=== PATIENT | female | born 1970 | race Caucasian/White ===

== ENCOUNTER 2017-04-03 09:10 | Emergency (ER) | payer BC ==
[2017-04-03 10:03] VITALS: BP 127/87
--- NOTE | 2017-04-03 10:42 | UC ---
Throat Pain/Nasal Steve HPI - HPI Summary HPI Summary: ONE WEEK OF SORE THROAT, CONGESTION, PRODUCTIVE COUGH, FEVER. NO NAUSEA OR VOMITING NO DIARRHEA OR CONSTIPATION. - History of Current Complaint Chief Complaint: UCRespiratory Stated Complaint: SORE THROAT,COUGH Time Seen by Provider: 04/03/17 10:23 Hx Obtained From: Patient Hx Last Menstrual Period: 03/01/17 Onset/Duration: Gradual Onset, Lasting Weeks, Still Present Severity: Moderate Cough: Productive Associated Signs & Symptoms: Positive: Hoarseness, Sinus Discomfort, Fever - Epiglottits Risk Factors Epiglottis Risk Factors: Negative - Allergies/Home Medications Allergies/Adverse Reactions: Allergies Allergy/AdvReac Type Severity Reaction Status Date / Time No Known Allergies Allergy Verified 04/03/17 09:57 Home Medications: Home Medications Cough With Decongestant BID PRN 04/03/17 [History] PMH/Surg Hx/FS Hx/Imm Hx Previously Healthy: Yes - Surgical History Surgical History: None - Family History Known Family History: Negative: Respiratory Disease - Social History Occupation: Employed Full-time Alcohol Use: None Substance Use Type: None Smoking Status (MU): Never Smoked Tobacco Review of Systems Constitutional: Fever, Fatigue Skin: Negative Eyes: Negative ENT: Sore Throat, Sinus Congestion Respiratory: Cough Cardiovascular: Negative Gastrointestinal: Negative Genitourinary: Negative Motor: Negative Neurovascular: Negative Musculoskeletal: Negative Neurological: Negative Psychological: Negative All Other Systems Reviewed And Are Negative: Yes Physical Exam Triage Information Reviewed: Yes Appearance: No Pain Distress, Well-Nourished, Ill-Appearing Vital Signs: Initial Vital Signs Temp 99.9 F 04/03/17 09:59 Pulse 81 04/03/17 09:59 Resp 16 04/03/17 09:59 BP 127/87 04/03/17 09:59 Pulse Ox 97 04/03/17 09:59 Vital Signs Reviewed: Yes Eye Exam: Normal ENT: Positive: Hearing grossly normal, Pharyngeal erythema, TM bulging, TM dull Dental Exam: Normal Neck exam: Normal Neck: Positive: Supple, Nontender, No Lymphadenopathy Respiratory Exam: Other - COUGH Respiratory: Positive: Chest non-tender, Lungs clear, Normal breath sounds, No respiratory distress, No accessory muscle use Cardiovascular Exam: Normal Cardiovascular: Positive: RRR, No Murmur, Pulses Normal Abdominal Exam: Normal Musculoskeletal: Positive: Strength Intact, ROM Intact Neurological Exam: Normal Psychological Exam: Normal Skin Exam: Normal Throat Pain/Nasal Course/Dx - Differential Dx/Diagnosis Differential Diagnosis/HQI/PQRI: Pharyngitis, Sinusitis, URI Provider Diagnoses: SINUSITIS Discharge - Discharge Plan Condition: Stable Disposition: HOME Prescriptions: Amoxicillin/Clavulanate TAB* [Augmentin TAB 875*] 875 mg PO BID #20 tab Benzonatate CAP* [Tessalon 100 MG CAP*] 100 mg PO TID PRN #15 cap PRN Reason: Cough Patient Education Materials: Sinusitis (ED), Acute Bronchitis (ED) Forms: *Work Release Referrals: Mely Leos MD [Primary Care Provider] -
== END 2017-04-03 10:40 | disposition home or self-care (01) ==
LOC: UCCORT 09:10
DX: J32.9 Chronic sinusitis, unspecified (principal)
CPT/HCPCS: 99202; G0463

== ENCOUNTER 2019-01-16 11:08 | Emergency (ER) | payer BC ==
--- OUTSIDE RECORDS SUMMARY | 2019-01-16 11:26 | XMS REPORT | Continuity of Care Document ---
:1970 External Reference #:[id number] Author Name Linda Masterson Care Team Providers Name Role Phone Mely Leos MD Primary Care Physician Unavailable Payers Date Identification Numbers Payment Provider Subscriber Policy Number: [id number] BCBS Ppo Ksenia Moore PayID: [id number] [address] [address] [place] [address] Expires: 2018 Policy Number: [id number] Micaela Porras Oscar Group Number: [id number] [address] [address] PayID: [id number] JOCELYN Araujo [id number] Effective: 2005 Policy Number: [id number] Seanus Ksenia Porras Oscar Expires: 2018 Group Number: [id number] [address] [address] PayID: [id number] JOCELYN Araujo [id number] Problems Active Problems Provider Date Vitamin D deficiency Mely Leos MD Onset: 12/21/2010 Resolved Problems Hyperlipidemia Mely Leos MD Onset: 12/21/2010 Resolved: 03/28/2017 Gout Mely Leos MD Onset: 07/12/2012 Resolved: 03/28/2017 Family History Date Family Member(s) Observation Comments General HTN,CVA Father Heart Disease Father Diabetes Mellitus, II Social History Type Date Description Comments Sex Unknown Tobacco Use Start: Unknown Denies Smoking ETOH Use Denies alcohol use Recreational Drug Use Denies Drug Use Tobacco Use Start: Unknown Patient has never smoked Smoking Status Reviewed: 04/15/17 Patient has never smoked Seat Belt/Car Seat Always uses a seat belt Currently Active The patient is currently sexually active Allergies, Adverse Reactions, Alerts Description No Known Drug Allergies Medications Active Medications SIG Qnty Indications Ordering Provider Date Vitamin D3 daily otc 90caps Mely Leos MD 03/28/2017 2000Unit Capsules Meloxicam 1 by mouth Unknown 15mg Tablets every day History Medications Diflucan 1 by mouth every 3tsienna Leos MD 04/11/2018 - 150mg Tablets day 12/20/2018 Zithromax 2 by mouth day 1, 6taJasen Boyd 08/10/2017 - 250mg Tablets 1 by mouth every 04/11/2018 day x days 2-5 Diflucan 1 by mouth every 3tabs Mely Leos MD 04/15/2017 - 150mg Tablets day 08/10/2017 Zithromax 1 by mouth every 5tabs Mely Leos MD 04/15/2017 - 500mg Tablets day for five days 08/10/2017 Flagyl 1 by mouth three 30tabs Mely Leos MD 10/27/2016 - 500mg Tablets times a day 03/28/2017 Diflucan 1 by mouth every 3tabs Mely Leos MD 03/31/2016 - 150mg Tablets day 04/03/2016 No Active Medications Unknown 03/18/2016 - 03/31/2016 Amoxicillin tab 1 by mouth 20taindia Leos MD 10/27/2015 - 875mg Tablets twice a day 03/18/2016 No Active Medications Unknown 10/01/2015 - 10/27/2015 Meloxicam take with food 30taindia Leos MD 11/13/2014 - 7.5mg Tablets every day 03/03/2015 Clarithromycin ER tab 1 po bid 20taindia Leos MD 08/22/2012 - 500mg 09/14/2012 Tablets ER 24HR Amoxicillin 1 po tid 30taindia Leos MD 04/18/2012 - 500mg Tablets 07/12/2012 Blood Builder Produced by Jovany Leos MD 06/23/2011 - foods. 04/18/2012 Flax Seed Oil qday Mely Leos MD 11/18/2009 - 1000mg 08/20/2014 Capsules Vitamin C qd Mely Leos MD 07/14/2009 - 500mg Tablets 05/12/2010 Amoxicillin 1 po tid 30taindia Leos MD 07/14/2009 - 500mg Tablets 11/18/2009 Vitamin D-3 Super daily otc Mely Leos MD 05/20/2009 - Strength 10/01/2015 2000Unit Tablets Zithromax 2 po day 1, 1 po 6tabs Mely Leos MD 10/01/2008 - 250mg Tablets qd x days 2-5 05/20/2009 Work Note patient prasanth Mely Leos MD 10/01/2008 - return to work 07/14/2009 on 10/07/08 Levaquin 1 po qd for ten 7tabs Mely Leos MD 10/30/2007 - 500mg Tablets day's 04/30/2008 Amoxicillin 1 PO tid X 10 30caps Mely Leos MD 05/30/2007 - 500mg Capsules Days 04/30/2008 No Meds Mely Leos MD 04/18/2006 - 07/14/2009 Acidophilus 2 by mouth two 30caps J20.9 Jasen Armenta - High-Potency times a day 04/11/2018 Capsules Robitussin Coughgels Unknown - 15mg 04/11/2018 Capsules Zyrtec Allergy 1 by mouth every Unknown - 10mg day as needed 04/11/2018 Capsules Immunizations CPT Code Status Date Vaccine Lot # [id number] Given 03/28/2017 Tetanus,Diphtheria,Adut/Adol Pertussis [id number] Given 05/26/2010 Influenza Vaccine [id number] Given 12/06/2002 DT Immunization DIP/Tet (History Only) Vital Signs Date Vital Result Comment 12/20/2018 2:42pm BP Systolic 136 mmHg BP Diastolic 84 mmHg Heart Rate 97 /min Height 65.50 inches 5'5.50" Weight 210.00 lb BMI (Body Mass Index) 34.4 kg/m2 O2 % BldC Oximetry 98 % 04/11/2018 4:17pm BP Systolic 118 mmHg BP Diastolic 70 mmHg Respiratory Rate 16 /min Height 65.50 inches 5'5.50" Weight 207.00 lb BMI (Body Mass Index) 33.9 kg/m2 08/10/2017 10:17am BP Systolic 134 mmHg BP Diastolic 70 mmHg Heart Rate 83 /min Body Temperature 98.4 F Respiratory Rate 18 /min 04/15/2017 9:27am BP Systolic 128 mmHg BP Diastolic 70 mmHg Body Temperature 97.6 F Respiratory Rate 18 /min 03/28/2017 10:55am BP Systolic 110 mmHg BP Diastolic 60 mmHg Respiratory Rate 18 /min Height 65.5 inches 5'5.50" Weight 205.00 lb BMI (Body Mass Index) 33.6 kg/m2 11/09/2016 3:04pm BP Systolic 122 mmHg BP Diastolic 70 mmHg 10/27/2016 4:05pm BP Systolic 132 mmHg BP Diastolic 70 mmHg 03/18/2016 3:43pm BP Systolic 132 mmHg BP Diastolic 78 mmHg 10/27/2015 12:40pm BP Systolic 120 mmHg BP Diastolic 62 mmHg Body Temperature 98.8 F 10/01/2015 2:49pm BP Systolic 122 mmHg BP Diastolic 64 mmHg Height 67 inches 5'7" Weight 198.00 lb BMI (Body Mass Index) 31.0 kg/m2 03/03/2015 3:28pm BP Systolic 120 mmHg BP Diastolic 72 mmHg Height 67 inches 5'7" Weight 203.00 lb BMI (Body Mass Index) 31.8 kg/m2 11/13/2014 9:12am BP Systolic 110 mmHg BP Diastolic 70 mmHg 08/20/2014 3:54pm BP Systolic 118 mmHg BP Diastolic 66 mmHg Height 68 inches 5'8" Weight 196.00 lb BMI (Body Mass Index) 29.8 kg/m2 01/23/2014 2:38pm BP Systolic 120 mmHg BP Diastolic 80 mmHg Height 68 inches 5'8" Weight 202.00 lb BMI (Body Mass Index) 30.7 kg/m2 08/20/2013 3:02pm BP Systolic 142 mmHg BP Diastolic 90 mmHg BP Systolic Recheck 120 mmHg BP Diastolic Recheck 70 mmHg Height 68 inches 5'8" Weight 202.00 lb BMI (Body Mass Index) 30.7 kg/m2 03/30/2013 9:53am BP Systolic 104 mmHg BP Diastolic 66 mmHg Height 68 inches 5'8" Weight 200.00 lb BMI (Body Mass Index) 30.4 kg/m2 09/14/2012 10:29am BP Systolic 130 mmHg BP Diastolic 80 mmHg Height 68 inches 5'8" Weight 191.00 lb BMI (Body Mass Index) 29.0 kg/m2 08/22/2012 11:52am BP Systolic 110 mmHg BP Diastolic 80 mmHg Body Temperature 98.2 F Height 68 inches 5'8" 07/12/2012 2:56pm BP Systolic 120 mmHg BP Diastolic 80 mmHg Height 68 inches 5'8" Weight 194.00 lb BMI (Body Mass Index) 29.5 kg/m2 04/18/2012 12:07pm BP Systolic 116 mmHg BP Diastolic 80 mmHg Body Temperature 99.6 F 12/22/2011 1:53pm BP Systolic 122 mmHg BP Diastolic 80 mmHg Height 67 inches 5'7" Weight 208.00 lb BMI (Body Mass Index) 32.6 kg/m2 06/23/2011 3:16pm BP Systolic 124 mmHg BP Diastolic 72 mmHg Height 67 inches 5'7" Weight 198.00 lb BMI (Body Mass Index) 31.0 kg/m2 12/21/2010 2:06pm BP Systolic 112 mmHg BP Diastolic 60 mmHg Height 67 inches 5'7" Weight 200.00 lb BMI (Body Mass Index) 31.3 kg/m2 05/12/2010 3:29pm BP Systolic 130 mmHg BP Diastolic 72 mmHg Weight 198.00 lb 11/18/2009 3:19pm BP Systolic 122 mmHg BP Diastolic 80 mmHg Weight 191.00 lb 07/14/2009 2:49pm Body Temperature 98.8 F 05/20/2009 2:31pm BP Systolic 128 mmHg BP Diastolic 86 mmHg Height 67 inches 5'7" Weight 181.00 lb BMI (Body Mass Index) 28.3 kg/m2 10/01/2008 3:13pm BP Systolic 110 mmHg BP Diastolic 62 mmHg Body Temperature 98.8 F Height 67 inches 5'7" Weight 182.00 lb BMI (Body Mass Index) 28.5 kg/m2 04/30/2008 2:33pm BP Systolic 118 mmHg BP Diastolic 76 mmHg Height 67 inches 5'7" Weight 172.00 lb BMI (Body Mass Index) 26.9 kg/m2 11/01/2007 11:18am BP Systolic 114 mmHg BP Diastolic 78 mmHg Body Temperature 100.1 F Height 67 inches 5'7" 05/30/2007 1:43pm BP Systolic 106 mmHg BP Diastolic 70 mmHg Body Temperature 100.2 F Height 67 inches 5'7" 04/25/2007 3:05pm BP Systolic 110 mmHg BP Diastolic 64 mmHg Height 67 inches 5'7" Weight 176.00 lb BMI (Body Mass Index) 27.6 kg/m2 12/13/2006 1:17pm BP Systolic 118 mmHg BP Diastolic 68 mmHg Height 67 inches 5'7" Weight 170.00 lb BMI (Body Mass Index) 26.6 kg/m2 04/21/2006 3:24pm BP Systolic 110 mmHg BP Diastolic 70 mmHg Height 67 inches 5'7" Weight 173.00 lb BMI (Body Mass Index) 27.1 kg/m2 Results Test Date Facility Test Result H/L Range Note Basic Metabolic Panel 12/16/2018 [facility] Glucose 89 mg/dL N 74-[address] [place], [place] [id number] [phone] BUN 12 mg/dL N 7-18 Creatinine 0.8 mg/dL N 0.6-1.3 Glom Filtration Rate, Estimate >60 mL/min >60 If >60 mL/min >60 2 BUN/Creat 15.0 ratio Sodium 137 mmol/L N 136-145 Potassium 4.7 mmol/L N 3.5-5.1 Chloride 105 mmol/L N 98-107 Carbon Dioxide 28 mmol/L N 21-32 Anion Gap 4 mEq/L Low 8-16 Calcium 9.0 mg/dL N 8.5-10.1 CBS W/Automated 12/16/2018 [facility] White Blood 6.2 K/uL N 3.1-10.[address] Count [place], [place] [id number] [phone] Red Blood Count 4.80 M/uL N 3.90-5.40 Hemoglobin 13.0 gm/dL N 11.6-15.8 Hematocrit 40.8 % N 36.0-46.1 Mean Cell Volume 85.0 fl N 80.9-99.0 Mean Corpuscular HGB 27.1 pg N 25.9-32.7 Mean Corpuscular HGB Conc 31.9 g/dL N 30.8-34.3 Platelet Count 418 K/uL High 155-360 Red Cell Distri Width SD 44.2 fl N 36-47 Red Cell Distri Width %CV 14.3 % N 11.7-14.4 Mean Platelet Volume 9.5 fl N 8.9-12.4 Neut% 48.2 % N 40.4-72.8 Lymph % 38.6 % N 20.0-42.0 Bethel % 7.4 % N 4.3-13.2 Eo% 4.2 % N 0.0-6.6 Bas% 1.3 % High 0.0-1.1 Immature Grans 0.3 % N 0.0-5.0 NRBC % 0.0 /100WBC < 10/ 100 WBC Neut# 3.00 K/uL N 1.8-7.0 Lymph # 2.40 K/uL N 1.0-4.0 Bethel # 0.46 K/uL N 0.3-0.9 Eos # 0.26 K/uL N 0.0-0.5 Baso # 0.08 K/uL N 0.0-0.1 Immature Grans Absolute 0.02 K/uL NRBC # 0.00 K/uL TSH+Free T4 12/16/2018 [facility] Thyroid Stim < pending> ([place] [facility]) [address] [place] [address] [phone] Free T4 <pending> Laboratory test 12/16/2018 [facility] Vitamin < pending> finding [address] D,25-Hydroxy [place], [place] [id number] [phone] Xray 04/17/2018 [facility] Mamogram Bilateral < pending> [place] [id number] Screening [phone] CBS W/Automated 04/08/2018 [facility] White Blood Count 8.5 K/uL N 3.1-1 [address] 0[address]7 [place], [place] [address] [phone] Red Blood Count 4.74 M/uL N 3.90-5.40 Hemoglobin 13.8 gm/dL N 11.6-15.8 Hematocrit 40.4 % N 36.0-46.1 Mean Cell Volume 85.2 fl N 80.9-99.0 Mean Corpuscular HGB 29.1 pg N 25.9-32.7 Mean Corpuscular HGB Conc 34.2 g/dL N 30.8-34.3 Platelet Count 353 K/uL N 155-360 Red Cell Distri Width SD 44.1 fl N 3-47 Red Cell Distri Width %CV 14.5 % High 11.7-14.4 Mean Platelet Volume 9.9 fL N 8.9-12.4 Neut% 61.6 % N 40.4-72.8 Lymph % 27.7 % N 20.0-42.0 Bethel % 7.3 % N 4.3-13.2 Eo% 2.8 % N 0.0-6.6 Bas% 0.6 % N 0.0-1.1 Neut# 5.23 K/uL N 1.8-7.0 Lymph # 2.35 K/uL N 1.0-4.0 Bethel # 0.62 K/uL N 0.3-0.9 Eos # 0.24 K/uL N 0.0-0.5 Baso # 0.05 K/uL N 0.0-0.1 Comprehensive 04/08/2018 [facility] Glucose 102 mg/ dL N 74-106 Metabolic Panel [address] [place] [address] [phone] BUN 14 mg/dL N 7-18 Creatinine 0.9 mg/dL N 0.6-1.3 Glom Filtration Rate, Estimate >60 mL/min >60 If >60 mL/min >60 4 BUN/Creat 15.5 ratio Sodium 138 mmol/L N 136-145 Potassium 4.9 mmol/L N 3.5-5.1 Chloride 104 mmol/L N 98-107 Carbon Dioxide 28 mmol/L N 21-32 Anion Gap 6 mEq/L Low 8-16 Calcium 9.0 mg/dL N 8.5-10.1 Total Protein 7.7 g/dL N 6.4-8.2 Albumin 3.6 g/dL N 3.4-5.0 Globulin 4.1 g/dL N 1.9-4.3 Alb/Glob 0.9 ratio Bilirubin,Total 0.3 mg/dL N 0.2-1.0 Sgot/Ast 12 U/L Low 15-37 5 SGPT/Alt 23 U/L N 12-78 Alkaline Phosphatase 71 U/L N 45-117 TSH+Free T4 04/08/2018 [facility] Thyroid Stim 1.97 uIU/mL N 0.30-4.20 ([place] & [address] Hormone [facility] [place] [address] [phone] Free T4 0.81 ng/dL N 0.76-1.46 LDL Cholesterol 04/08/2018 [facility] Cholesterol 158 mg/dL <200 [address] [place] [address] [phone] Triglycerides 84 mg/dL <150 7 HDL Cholesterol 48 mg/dL >40 8 LDL-Cholesterol 93 mg/dL < 100 9 Laboratory test 04/08/2018 [facility] Vitamin 31.0 30.0-100.0 [address] D,25-Hydroxy ng/[place] [address] [phone] General Health 03/19/2017 [facility] Thyroid Stim 1.34 N 0.30-4.20 [address] Hormone uIU/[place] [address] [phone] Free T4 0.94 ng/dL N 0.76-1.46 Comprehensive Metabolic 03/19/2017 [facility] Glucose 97 mg/dL N 74-[address] [place] [address] [phone] BUN 16 mg/dL N 7-18 Creatinine 0.7 mg/dL N 0.6-1.3 Glom Filtration Rate, Estimate >60 mL/min >60 If >60 mL/min >60 12 BUN/Creat 22.8 ratio Sodium 137 mmol/L N 136-145 Potassium 3.9 mmol/L N 3.5-5.1 Chloride 105 mmol/L N 98-107 Carbon Dioxide 26 mmol/L N 21-32 Anion Gap 6 mEq/L Low 8-16 Calcium 8.2 mg/dL Low 8.5-10.1 Laboratory 03/19/2017 [facility] Vitamin 24.6 Low 30.0-100.0 13 test finding [address] D,25-Hydroxy ng/[place] [address] [phone] Liver Function 03/19/2017 [facility] Total Protein 7.3 g/dL N 6.4-8.[address] [place] [address] [phone] Albumin 3.3 g/dL Low 3.4-5.0 Globulin 4.0 g/dL N 1.9-4.3 Alb/Glob 0.8 ratio Bilirubin,Total 0.2 mg/dL N 0.2-1.0 Bilirubin,Direct < 0.1 mg/dL N 0.0-0.2 Bilirubin,Indirect 0.1 mg/dL N 0.0-0.9 Sgot/Ast 18 U/L N 15-37 SGPT/Alt 24 U/L N 12-78 Alkaline Phosphatase 70 U/L N 45-117 LDL Cholesterol 03/19/2017 [facility] Cholesterol 162 mg/dL <200 [address] [place], [place] [id number] [phone] Triglycerides 99 mg/dL <150 15 HDL Cholesterol 41 mg/dL >40 16 LDL-Cholesterol 101 mg/dL < 100 17 CBC W/Automated 03/19/2017 [facility] White Blood 6.1 K/uL N 3.1-10.[address] [place] [address] [phone] Red Blood Count 4.20 M/uL N 3.90-5.40 Hemoglobin 11.6 gm/dL N 11.6-15.8 Hematocrit 35.3 % Low 36.0-46.1 Mean Cell Volume 84.0 fl N 80.9-99.0 Mean Corpuscular HGB 27.6 pg N 25.9-32.7 Mean Corpuscular HGB Conc 32.9 g/dL N 30.8-34.3 Platelet Count 360 K/uL N 150-400 Red Cell Distri Width SD 40.3 fl N 3-47 Red Cell Distri Width %CV 13.4 % N 11.7-14.4 Mean Platelet Volume 9.9 fL N 8.9-12.4 Neut% 54.8 % N 40.4-72.8 Lymph % 32.9 % N 20.0-42.0 Bethel % 7.6 % N 4.3-13.2 Eo% 3.5 % N 0.0-6.6 Bas% 1.2 % High 0.0-1.1 Neut# 3.33 K/uL N 1.8-7.0 Lymph # 2.00 K/uL N 1.0-4.0 Bethel # 0.46 K/uL N 0.3-0.9 Eos # 0.21 K/uL N 0.0-0.5 Baso # 0.07 K/uL N 0.0-0.1 C. Difficile 10/29/2016 [facility] C. Difficile NEGATIVE FOR 18, 19 Toxin A/B [address] Toxin A/B C. <[place] [address] NOTE> [phone] CBC W/ Diff & 10/27/2016 [facility] White Blood 8.9 K /uL N 3.1-1 [address] Count 0.7 [place], [place] [id number] [phone] Red Blood Count 4.87 M/uL N 3.90-5.40 Hemoglobin 14.0 gm/dL N 11.6-15.8 Hematocrit 41.7 % N 36.0-46.1 Mean Cell Volume 85.6 fl N 80.9-99.0 Mean Corpuscular HGB 28.7 pg N 25.9-32.7 Mean Corpuscular HGB Conc 33.6 g/dL N 30.8-34.3 Platelet Count 395 K/uL N 150-400 Red Cell Distri Width SD 42.7 fl N 3-47 Red Cell Distri Width %CV 13.9 % N 11.7-14.4 Mean Platelet Volume 9.5 fL N 8.9-12.4 Neut% 56.6 % N 40.4-72.8 Lymph % 34.1 % N 20.0-42.0 Bethel % 5.5 % N 4.3-13.2 Eo% 2.8 % N 0.0-6.6 Bas% 1.0 % N 0.0-1.1 Neut# 5.04 K/uL N 1.8-7.0 Lymph # 3.04 K/uL N 1.0-4.0 Bethel # 0.49 K/uL N 0.3-0.9 Eos # 0.25 K/uL N 0.0-0.5 Baso # 0.09 K/uL N 0.0-0.1 Hepatic Function 10/27/2016 [facility] Total Protein 8.2 g/dL N 6.4-8.[address] [place], [place] [address] [phone] Albumin 4.3 g/dL N 3.4-5.0 Globulin 3.9 g/dL N 1.9-4.3 Alb/Glob 1.1 ratio Bilirubin,Total 0.3 mg/dL N 0.2-1.0 Bilirubin,Direct < 0.1 mg/dL N 0.0-0.2 Bilirubin,Indirect 0.2 mg/dL N 0.0-0.9 Sgot/Ast 17 U/L N 15-37 SGPT/Alt 28 U/L N 12-78 Alkaline Phosphatase 70 U/L N 45-117 Culture,Stool 10/27/2016 [facility] Stool Culture NO ENTERIC PATHO [address] <SEE NOTE> [place] [address] [phone] . ................ <SEE NOTE> N 22 Note: INCLUDES TESTING <SEE NOTE> N 23 . PLESIOMONAS, CAM <SEE NOTE> N 24 . ................ <SEE NOTE> N 25 . YERSINIA AND VIB <SEE NOTE> N 26 . SHOULD BE REQUES <SEE NOTE> N 27 Shiga Toxin 1 Antigen SHIGA TOXIN 1 NO <SEE NOTE> 28 Shiga Toxin 2 Antigen SHIGA TOXIN 2 NO <SEE NOTE> 29 Rotavirus Ag 10/27/2016 [facility] Rotavirus NEGATIVE FOR [address] Antigen [place] <[place] [address] NOTE> [phone] Basic Metabolic 10/27/2016 [facility] Glucose 109 mg/ dL High 74-[address] [place] [address] [phone] BUN 10 mg/dL N 7-18 Creatinine 0.9 mg/dL N 0.6-1.3 Glom Filtration Rate, Estimate >60 mL/min >60 If >60 mL/min >60 31 BUN/Creat 11.1 ratio Sodium 139 mmol/L N 136-145 Potassium 3.5 mmol/L N 3.5-5.1 Chloride 101 mmol/L N 98-107 Carbon Dioxide 28 mmol/L N 21-32 Anion Gap 10 mEq/L N 8-16 Calcium 9.0 mg/dL N 8.5-10.1 CBC W/Automated 03/13/2016 [facility] White Blood 7.0 K/uL 3.1-10.[address] [place] [address] [phone] Red Blood Count 4.62 M/uL 3.90-5.40 Hemoglobin 13.4 gm/dL 11.6-15.8 Hematocrit 39.7 % 36.0-46.1 Mean Cell Volume 85.9 fl 80.9-99.0 Mean Corpuscular HGB 29.0 pg 25.9-32.7 Mean Corpuscular HGB Conc 33.8 g/dL 30.8-34.3 Platelet Count 304 K/uL 155-360 Red Cell Distri Width SD 41.8 fl 3-47 Red Cell Distri Width %CV 13.6 % 11.7-14.4 Mean Platelet Volume 9.7 fL 8.9-12.4 Neut% 50.5 % 40.4-72.8 Lymph % 37.7 % 17.0-46.1 Bethel % 6.9 % 4.3-13.2 Eo% 3.6 % 0.0-6.6 Bas% 1.3 % High 0.0-1.1 Neut# 3.52 K/uL 1.8-7.0 Lymph # 2.63 K/uL 1.8-7.0 Bethel # 0.48 K/uL 0.3-0.9 Eos # 0.25 K/uL 0.0-0.5 Baso # 0.09 K/uL 0.0-0.1 General Health 09/20/2015 [facility] Thyroid Stim 1.83 uIU/mL 0.36-3.[address] Hormone [place], [place] [id number] [phone] Free T4 0.96 ng/dL 0.76-1.46 Comprehensive Metabolic 09/20/2015 [facility] Glucose 99 mg/dL 74-[address] [place] [address] [phone] BUN 17 mg/dL 7-18 Creatinine 0.9 mg/dL 0.6-1.3 Glom Filtration Rate, Estimate >60 mL/min >60 If >60 mL/min >60 32 BUN/Creat 18.8 ratio Sodium 139 mmol/L 136-145 Potassium 4.1 mmol/L 3.5-5.1 Chloride 106 mmol/L 98-107 Carbon Dioxide 28 mmol/L 21-32 Anion Gap 5 mEq/L Low 8-16 Calcium 8.8 mg/dL 8.5-10.1 Total Protein 7.5 g/dL 6.4-8.2 Albumin 3.7 g/dL 3.4-5.0 Globulin 3.8 g/dL 1.9-4.3 Alb/Glob 1.0 ratio Bilirubin,Total 0.4 mg/dL 0.2-1.0 Sgot/Ast 15 U/L 15-37 SGPT/Alt 30 U/L 12-78 Alkaline Phosphatase 65 U/L 45-117 CBC W/Automated 09/20/2015 [facility] White Blood 6.7 K/uL 3.1-10.[address] Count [place], [place] [id number] [phone] Red Blood Count 4.64 M/uL 3.90-5.40 Hemoglobin 13.5 gm/dL 11.6-15.8 Hematocrit 40.2 % 36.0-46.1 Mean Cell Volume 86.6 fl 80.9-99.0 Mean Corpuscular HGB 29.1 pg 25.9-32.7 Mean Corpuscular HGB Conc 33.6 g/dL 30.8-34.3 Platelet Count 370 K/uL High 155-360 Red Cell Distri Width SD 42.8 fl 3-47 Red Cell Distri Width %CV 13.9 % 11.7-14.4 Mean Platelet Volume 10.1 fL 8.9-12.4 Neut% 51.4 % 40.4-72.8 Lymph % 35.9 % 17.0-46.1 Bethel % 7.5 % 4.3-13.2 Eo% 4.1 % 0.0-6.6 Bas% 1.1 % 0.0-1.1 Neut# 3.43 K/uL 1.8-7.0 Lymph # 2.39 K/uL 1.8-7.0 Bethel # 0.50 K/uL 0.3-0.9 Eos # 0.27 K/uL 0.0-0.5 Baso # 0.07 K/uL 0.0-0.1 LDL Cholesterol 09/20/2015 [facility] Cholesterol 179 mg/dL <200 [address] [place], [place] [id number] [phone] Triglycerides 115 mg/dL <150 34 HDL Cholesterol 35 mg/dL Low >40 35 LDL-Cholesterol 121 mg/dL < 100 36 Liver Function 09/20/2015 [facility] Total Protein 7.5 g/dL 6.4-8.[address] [place], [place] [address] [phone] Albumin 3.7 g/dL 3.4-5.0 Globulin 3.8 g/dL 1.9-4.3 Alb/Glob 1.0 ratio Bilirubin,Total 0.4 mg/dL 0.2-1.0 Bilirubin,Direct < 0.1 mg/dL 0.0-0.2 Bilirubin,Indirect 0.3 mg/dL 0.0-0.9 Sgot/Ast 15 U/L 15-37 SGPT/Alt 30 U/L 12-78 Alkaline Phosphatase 65 U/L 45-117 Laboratory 09/20/2015 [facility] Vitamin 25.3 Low 30.0-100.0 37 test finding [address] D,25-Hydroxy ng/mL [place], [place] [address] [phone] CBC W/ Diff & 02/01/2015 [facility] White Blood 7.8 K /uL 3.1-10.[address] Count [place], [place] [id number] [phone] Red Blood Count 4.48 M/uL 3.90-5.40 Hemoglobin 13.1 gm/dL 11.6-15.8 Hematocrit 38.7 % 36.0-46.1 Mean Cell Volume 86.4 fl 80.9-99.0 Mean Corpuscular HGB 29.2 pg 25.9-32.7 Mean Corpuscular HGB Conc 33.9 g/dL 30.8-34.3 Platelet Count 336 K/uL 155-360 Red Cell Distri Width SD 42.5 fl 3-47 Red Cell Distri Width %CV 13.7 % 11.7-14.4 Mean Platelet Volume 9.9 fL 8.9-12.4 Neut% 53.1 % 40.4-72.8 Lymph % 33.8 % 17.0-46.1 Bethel % 8.2 % 4.3-13.2 Eo% 3.5 % 0.0-6.6 Bas% 1.4 % High 0.0-1.1 Neut# 4.14 K/uL 1.0-7.0 Lymph # 2.64 K/uL 1.8-7.0 Bethel # 0.64 K/uL 0.3-0.9 Eos # 0.27 K/uL 0.0-0.5 Baso # 0.11 K/uL High 0.0-0.1 Laboratory test 02/01/2015 [facility] Ferritin 72 ng/ mL 8-[address] [place] [address] [phone] Iron Deficiency 02/01/2015 [facility] Serum Iron 67 g/dL 50-[address] [place], [place] [id number] [phone] Total Iron Binding Capacity 308 g/dL 250-450 Transferrin %Saturation 22 % 12-57 LDL Cholesterol 08/10/2014 [facility] Cholesterol 196 mg/dL < 200 [address] [place], [place] [id number] [phone] Triglycerides 226 mg/dL < 150 39 HDL Cholesterol 37 mg/dL > 40 40 LDL-Cholesterol 114 mg/dL < 100 41 CBC W/Automated 08/10/2014 [facility] White Blood 7.6 K/uL 3.1-10.[address] Count [place], [place] [id number] [phone] Red Blood Count 4.76 M/uL 3.90-5.40 Hemoglobin 13.8 gm/dL 11.6-15.8 Hematocrit 41.0 % 36.0-46.1 Mean Cell Volume 86.1 fl 80.9-99.0 Mean Corpuscular HGB 29.0 pg 25.9-32.7 Mean Corpuscular HGB Conc 33.7 g/dL 30.8-34.3 Platelet Count 387 K/uL High 155-360 Red Cell Distri Width SD 42.9 fl 3-47 Red Cell Distri Width %CV 13.9 % 11.7-14.4 Mean Platelet Volume 9.9 fL 8.9-12.4 Neut% 53.0 % 40.4-72.8 Lymph % 35.4 % 17.0-46.1 [place] % 6.9 % 4.3-13.2 Eo% 3.9 % 0.0-6.6 Bas% 0.8 % 0.0-1.1 Neut# 4.04 K/uL 1.0-7.0 Lymph # 2.70 K/uL 0.8-3.4 [place] # 0.53 K/uL 0.3-0.9 Eos # 0.30 K/uL 0.0-0.5 Baso # 0.06 K/uL 0.0-0.1 TSH+Free T4 08/10/2014 [facility] Thyroid Stim 2.96 uIU/mL 0.36-3.74 ([place] & [address] Hormone [facility] [place] [address] [phone] Free T4 0.88 ng/dL 0.76-1.46 Laboratory test 08/10/2014 [facility] Vitamin 31.4 30.0-100.0 [address] D,25-Hydroxy ng/[place] [address] [phone] Comprehensive 08/10/2014 [facility] Glucose 99 mg/dL 74-106 Metabolic Panel [address] [place] [address] [phone] BUN 15 mg/dL 7-18 Creatinine 0.8 mg/dL 0.6-1.3 Glom Filtration Rate, Estimate >60 mL/min >60 If >60 mL/min >60 43 BUN/Creat 18.7 ratio Sodium 139 mmol/L 136-145 Potassium 4.2 mmol/L 3.5-5.1 Chloride 104 mmol/L 98-107 Carbon Dioxide 29 mmol/L 21-32 Anion Gap 10 mEq/L 8-16 Calcium 8.6 mg/dL 8.5-10.1 Total Protein 7.5 g/dL 6.4-8.2 Albumin 3.7 g/dL 3.4-5.0 Globulin 3.8 g/dL 1.9-4.3 Alb/Glob 1.0 ratio Bilirubin,Total 0.3 mg/dL 0.2-1.0 Sgot/Ast 15 U/L 15-37 SGPT/Alt 30 U/L 12-78 Alkaline Phosphatase 69 U/L 45-117 Laboratory test 08/10/2014 [facility] Bilirubin, Direct < 0.1 0.0-0.[address] mg/[place] [address] [phone] CBC W/Automated 12/15/2013 [facility] White Blood Count 7.0 K/uL 3.1-10.[address] [place] [address] [phone] Red Blood Count 4.54 M/uL 3.90-5.40 Hemoglobin 13.3 gm/dL 11.6-15.8 Hematocrit 39.2 % 36.0-46.1 Mean Cell Volume 86.3 fl 80.9-99.0 Mean Corpuscular HGB 29.3 pg 25.9-32.7 Mean Corpuscular HGB Conc 33.9 g/dL 30.8-34.3 Platelet Count 372 K/uL High 155-360 Red Cell Distri Width SD 41.9 fl 3-47 Red Cell Distri Width %CV 13.7 % 11.7-14.4 Mean Platelet Volume 9.6 fL 8.9-12.4 Neut% 50.8 % 40.4-72.8 Lymph % 38.6 % 17.0-46.1 [place] % 7.0 % 4.3-13.2 Eo% 2.7 % 0.0-6.6 Bas% 0.9 % 0.0-1.1 Neut# 3.55 K/uL 1.0-7.0 Lymph # 2.70 K/uL 0.8-3.4 [place] # 0.49 K/uL 0.3-0.9 Eos # 0.19 K/uL 0.0-0.5 Baso # 0.06 K/uL 0.0-0.1 CBS W/Automated 08/11/2013 [facility] White Blood 6.7 K/uL 3.1-10.[address] [place] [address] [phone] Red Blood Count 4.67 M/uL 3.90-5.40 Hemoglobin 13.7 gm/dL 11.6-15.8 Hematocrit 40.8 % 36.0-46.1 Mean Cell Volume 87.4 fl 80.9-99.0 Mean Corpuscular HGB 29.3 pg 25.9-32.7 Mean Corpuscular HGB Conc 33.6 g/dL 30.8-34.3 Platelet Count 394 K/uL High 155-360 Red Cell Distri Width SD 44.2 fl 3-47 Red Cell Distri Width %CV 14.0 % 11.7-14.4 Mean Platelet Volume 9.9 fL 8.9-12.4 Neut% 57.0 % 40.4-72.8 Lymph % 31.9 % 17.0-46.1 [place] % 6.3 % 4.3-13.2 Eo% 3.3 % 0.0-6.6 Bas% 1.5 % High 0.0-1.1 Neut# 3.80 K/uL 1.0-7.0 Lymph # 2.13 K/uL 0.8-3.4 [place] # 0.42 K/uL 0.3-0.9 Eos # 0.22 K/uL 0.0-0.5 Baso # 0.10 K/uL 0.0-0.1 Comprehensive 08/11/2013 [facility] Glucose 105 mg/ dL 76-115 Metabolic Panel [address] [place], [place] [id number] [phone] BUN 17 mg/dL 5-23 Creatinine 0.9 mg/dL 0.5-1.4 Glom Filtration Rate, Estimate >60 mL/min >60 If >60 mL/min >60 44 BUN/Creat 18.8 ratio Sodium 134 mmol/L Low 136-145 Potassium 4.0 mmol/L 3.5-5.1 Chloride 102 mmol/L 98-107 Carbon Dioxide 29 mEq/L 18-29 Anion Gap 7 mEq/L Low 8-16 Calcium 8.9 mg/dL 8.5-10.1 Total Protein 8.0 g/dL 6.3-8.0 Albumin 4.0 g/dL 3.5-5.0 Globulin 4.0 g/dL 1.9-4.3 Alb/Glob 1.0 ratio Bilirubin,Total 0.4 mg/dL 0.2-1.2 Sgot/Ast 24 U/L 16-40 SGPT/Alt 39 U/L 30-65 Alkaline Phosphatase 79 U/L 50-136 LDL Cholesterol 08/11/2013 [facility] Cholesterol 211 mg/dL High 120-[address] [place], [place] [id number] [phone] Triglycerides 173 mg/dL 16-231 HDL Cholesterol 42 mg/dL 29-83 LDL-Cholesterol 134 mg/dL 62-185 Laboratory test 08/11/2013 [facility] Bilirubin, Direct < 0.1 Low 0.1-0.[address] mg/dL [place], [place] [id number] [phone] CK 72 U/L 26-190 Thyroid Stim Hormone 1.96 uIU/mL 0.49-4.67 Free T4 0.88 ng/dL 0.71-1.85 Vitamin D,25-Hydroxy 48.0 ng/mL 30.0-100.0 45 CBS W/Automated 03/10/2013 [facility] White Blood 6.9 K/uL 3.1-10.[address] [place] [address] [phone] Red Blood Count 4.82 M/uL 3.90-5.40 Hemoglobin 14.0 gm/dL 11.6-15.8 Hematocrit 41.2 % 36.0-46.1 Mean Cell Volume 85.5 fl 80.9-99.0 Mean Corpuscular HGB 29.0 pg 25.9-32.7 Mean Corpuscular HGB Conc 34.0 g/dL 30.8-34.3 Platelet Count 401 K/uL High 155-360 Red Cell Distri Width SD 43.0 fl 3-47 Red Cell Distri Width %CV 14.1 % 11.7-14.4 Mean Platelet Volume 9.9 fL 8.9-12.4 Neut% 55.2 % 40.4-72.8 Lymph % 33.9 % 17.0-46.1 Bethel % 5.5 % 4.3-13.2 Eo% 4.1 % 0.0-6.6 Bas% 1.3 % High 0.0-1.1 Neut# 3.80 K/uL 1.0-7.0 Lymph # 2.33 K/uL 0.8-3.4 Bethel # 0.38 K/uL 0.3-0.9 Eos # 0.28 K/uL 0.0-0.5 Baso # 0.09 K/uL 0.0-0.1 Laboratory test 03/10/2013 [facility] Uric Acid 5.0 mg/dL 2.1-7.[address] [place] [address] [phone] Laboratory test 08/02/2012 [facility] Uric Acid 5.5 mg/dL 2.1-7.[address] [place] [address] [phone] Laboratory test 06/24/2012 [facility] Thyroid Stim 2.36 uIU/mL 0.49-4.[address] [place] [address] [phone] Free T4 0.83 ng/dL 0.71-1.85 Comprehensive Metabolic 06/24/2012 [facility] Glucose 96 mg/dL 76-[address] [place] [address] [phone] BUN 14 mg/dL 5-23 Creatinine 0.8 mg/dL 0.5-1.4 Glom Filtration Rate, Estimate >60 mL/min >60 If >60 mL/min >60 46 BUN/Creat 17.5 ratio Sodium 138 mmol/L 136-145 Potassium 4.1 mmol/L 3.5-5.1 Chloride 104 mmol/L 98-107 Carbon Dioxide 28 mEq/L 18-29 Anion Gap 10 mEq/L 8-16 Calcium 9.2 mg/dL 8.5-10.1 Total Protein 8.1 g/dL High 6.3-8.0 Albumin 3.8 g/dL 3.5-5.0 Globulin 4.3 g/dL 1.9-4.3 Alb/Glob 0.9 ratio Bilirubin,Total 0.3 mg/dL 0.2-1.2 Sgot/Ast 15 U/L Low 16-40 SGPT/Alt 27 U/L Low 30-65 Alkaline Phosphatase 61 U/L 50-136 Liver Function 06/24/2012 [facility] Total Protein 8.1 g/dL High 6.3-8.[address] [place] [address] [phone] Albumin 3.8 g/dL 3.5-5.0 Globulin 4.3 g/dL 1.9-4.3 Alb/Glob 0.9 ratio Bilirubin,Total 0.3 mg/dL 0.2-1.2 Bilirubin,Direct < 0.1 mg/dL Low 0.1-0.4 Bilirubin,Indirect 0.2 mg/dL 0.0-0.9 Sgot/Ast 15 U/L Low 16-40 SGPT/Alt 27 U/L Low 30-65 Alkaline Phosphatase 61 U/L 50-136 CBC W/ Diff & 06/24/2012 [facility] White Blood 7.4 K /uL 3.1-10.[address] [place] [address] [phone] Red Blood Count 4.79 M/uL 3.90-5.40 Hemoglobin 13.9 gm/dL 11.6-15.8 Hematocrit 41.1 % 36.0-46.1 Mean Cell Volume 85.8 fl 80.9-99.0 Mean Corpuscular HGB 29.0 pg 25.9-32.7 Mean Corpuscular HGB Conc 33.8 g/dL 30.8-34.3 Platelet Count 364 K/uL High 155-360 Red Cell Distri Width SD 43.0 fl 3-47 Red Cell Distri Width %CV 13.8 % 11.7-14.4 Mean Platelet Volume 9.8 fL 8.9-12.4 Neut% 59.3 % 40.4-72.8 Lymph % 29.0 % 17.0-46.1 Bethel % 6.7 % 4.3-13.2 Eo% 3.8 % 0.0-6.6 Bas% 1.2 % High 0.0-1.1 Neut# 4.40 K/uL 1.0-7.0 Lymph # 2.15 K/uL 0.8-3.4 Bethel # 0.50 K/uL 0.3-0.9 Eos # 0.28 K/uL 0.0-0.5 Baso # 0.09 K/uL 0.0-0.1 Laboratory test 06/24/2012 [facility] CK 87 U/L 26 -[address] [place], [place] [id number] [phone] LDL Cholesterol 06/24/2012 [facility] Cholesterol 191 mg/dL 120-[address] [place] [address] [phone] Triglycerides 151 mg/dL 16-231 HDL Cholesterol 45 mg/dL 29-83 LDL-Cholesterol 116 mg/dL 62-185 CBS W/Automated 12/15/2011 [facility] White Blood 8.5 K/uL 3.1-10.[address] Count [place], [place] [id number] [phone] Red Blood Count 4.82 M/uL 3.90-5.40 Hemoglobin 13.9 gm/dL 11.6-15.8 Hematocrit 40.9 % 36.0-46.1 Mean Cell Volume 84.9 fl 80.9-99.0 Mean Corpuscular HGB 28.8 pg 25.9-32.7 Mean Corpuscular HGB Conc 34.0 g/dL 30.8-34.3 Platelet Count 341 K/uL 155-360 Red Cell Distri Width SD 42.9 fl 3-47 Red Cell Distri Width %CV 14.0 % 11.7-14.4 Mean Platelet Volume 10.0 fL 8.9-12.4 Neut% 60.6 % 40.4-72.8 Lymph % 28.5 % 17.0-46.1 Bethel % 6.6 % 4.3-13.2 Eo% 3.2 % 0.0-6.6 Bas% 1.1 % 0.0-1.1 Neut# 5.13 K/uL 1.0-7.0 Lymph # 2.41 K/uL 0.8-3.4 Bethel # 0.56 K/uL 0.3-0.9 Eos # 0.27 K/uL 0.0-0.5 Baso # 0.09 K/uL 0.0-0.1 LDL Cholesterol 12/15/2011 [facility] Cholesterol 189 mg/dL 120-[address] [place], [place] [id number] [phone] Triglycerides 147 mg/dL 16-231 HDL Cholesterol 45 mg/dL 29-83 LDL-Cholesterol 115 mg/dL 62-185 Laboratory test 12/15/2011 [facility] Vitamin 38.7 30.0-100.0 [address] D,25-Hydroxy ng/[place] [address] [phone] Liver Function 06/16/2011 [facility] Total Protein 7.5 g/dL 6.3-8.[address] [place] [address] [phone] Albumin 3.7 g/dL 3.5-5.0 Bilirubin,Total 0.4 mg/dL 0.2-1.2 Bilirubin,Direct 0.1 mg/dL 0.1-0.4 Bilirubin,Indirect 0.3 mg/dL 0.0-0.9 Sgot/Ast 13 U/L Low 16-40 SGPT/Alt 25 U/L Low 30-65 Alkaline Phosphatase 64 U/L 50-136 Globulin 3.8 g/dL 1.9-4.3 Alb/Glob 1.0 ratio Comprehensive Metabolic 06/16/2011 [facility] Glucose 96 mg/dL 76-[address] [place] [address] [phone] BUN 10 mg/dL 5-23 Creatinine 1.0 mg/dL 0.5-1.4 Glom Filtration Rate, Estimate >60 mL/min >60 If >60 mL/min >60 48 BUN/Creat 10.0 ratio Sodium 137 mmol/L 136-145 Potassium 4.5 mmol/L 3.5-5.1 Chloride 102 mmol/L 98-107 Carbon Dioxide 29 mEq/L 18-29 Anion Gap 11 mEq/L 8-16 Calcium 9.6 mg/dL 8.5-10.1 Total Protein 7.5 g/dL 6.3-8.0 Albumin 3.7 g/dL 3.5-5.0 Globulin 3.8 g/dL 1.9-4.3 Alb/Glob 1.0 ratio Bilirubin,Total 0.4 mg/dL 0.2-1.2 Sgot/Ast 13 U/L Low 16-40 SGPT/Alt 25 U/L Low 30-65 Alkaline Phosphatase 64 U/L 50-136 LDL Cholesterol 06/16/2011 [facility] Cholesterol 184 mg/dL 120-[address] [place] [address] [phone] Triglycerides 182 mg/dL 16-231 HDL Cholesterol 38 mg/dL 29-83 LDL-Cholesterol 110 mg/dL 62-185 Laboratory test 06/16/2011 [facility] Thyroid Stim 2.92 uIU/mL 0.49-4.[address] [place] [address] [phone] Free T4 0.87 ng/dL 0.71-1.85 CBS W/Automated 06/16/2011 [facility] White Blood 7.4 K/uL 3.1-10.[address] [place] [address] [phone] Red Blood Count 4.60 M/uL 3.90-5.40 Hemoglobin 13.3 gm/dL 11.6-15.8 Hematocrit 39.2 % 36.0-46.1 Mean Cell Volume 85.2 fl 80.9-99.0 Mean Corpuscular HGB 28.9 pg 25.9-32.7 Mean Corpuscular HGB Conc 33.9 g/dL 30.8-34.3 Platelet Count 395 K/uL High 155-360 Red Cell Distri Width %CV 13.9 % 11.7-14.4 Mean Platelet Volume 9.8 fL 8.9-12.4 Neut% 53.3 % 40.4-72.8 Lymph % 35.2 % 17.0-46.1 Bethel % 6.5 % 4.3-13.2 Eo% 3.8 % 0.0-6.6 Bas% 1.2 % High 0.0-1.1 Neut# 3.93 K/uL 1.0-7.0 Lymph # 2.60 K/uL 0.8-3.4 Bethel # 0.48 K/uL 0.3-0.9 Eos # 0.28 K/uL 0.0-0.5 Baso # 0.09 K/uL 0.0-0.1 Red Cell Distri Width SD 42.7 fl 3-47 CBC/Manual 05/03/2011 [facility] White Blood 7.9 K/ uL 3.1-10.[address] [place], [place] [id number] [phone] Red Blood Count 4.70 M/uL 3.90-5.40 Hemoglobin 13.4 gm/dL 11.6-15.8 Hematocrit 40.0 % 36.0-46.1 Mean Cell Volume 85.1 fl 80.9-99.0 Mean Corpuscular HGB 28.5 pg 25.9-32.7 Mean Corpuscular HGB Conc 33.5 g/dL 30.8-34.3 Platelet Count 339 K/uL 155-360 Red Cell Distri Width %CV 13.8 % 11.7-14.4 Mean Platelet Volume 10.1 fL 8.9-12.4 Total Cells Counted 100 #CELLS Neutrophils% 49 % 33-73 Lymph% 40 % 17-56 Platelet Estimate NORMAL Band% 1 % 0-8 Atypical Lymph% 5 % 0-7 Monocyte% 2 % 0-10 Eosinophil% 2 % 0-5 Basophil% 1 % 0-2 RBC Morphology NORMAL Comprehensive 02/10/2011 [facility] Glucose 103 mg/ dL 76-115 Metabolic Panel [address] [place], [place] [id number] [phone] BUN 15 mg/dL 5-23 Creatinine 0.8 mg/dL 0.5-1.4 Glom Filtration Rate, Estimate >60 mL/min >60 If >60 mL/min >60 49 BUN/Creat 18.7 Sodium 136 mEq/L 136-145 Potassium 3.9 mEq/L 3.5-5.1 Chloride 102 mEq/L 98-107 Carbon Dioxide 26 mEq/L 21-32 Anion Gap 12 mEq/L 8-16 Calcium 9.3 mg/dL 8.5-10.1 Total Protein 8.0 g/dL 6.3-8.0 Albumin 4.0 g/dL 3.5-5.0 Globulin 4.0 gm/dL 1.9-4.3 Alb/Glob 1.0 Bilirubin,Total 0.3 mg/dL 0.2-1.2 Sgot/Ast 17 U/L 16-40 SGPT/Alt 40 U/L 30-65 Alkaline Phosphatase 83 U/L 50-136 Laboratory test finding 02/10/2011 [facility] LDH 199 U/L 165-[address] [place], [place] [id number] [phone] Serum Iron 58 g/dL 25-156 51 Total Iron Binding Capacity 301 g/dL 245-419 52 Transferrin %Saturation 19 % 12-57 53 Ferritin 60.0 ng/mL 3-105 54 Jak2 [id number] 02/10/2011 [facility] Jak2 [id number] See Note 55 Mutation Detection [address] [place] [address] detection [phone] Director Review See Note 56 Background See Note 57 CBC/Manual 02/10/2011 [facility] White Blood 6.2 K/ uL 3.1-10.[address] Count [place], [place] [address] [phone] Red Blood Count 4.79 M/uL 3.90-5.40 Hemoglobin 13.6 gm/dL 11.6-15.8 Hematocrit 41.5 % 36.0-46.1 Mean Cell Volume 86.6 fl 80.9-99.0 Mean Corpuscular HGB 28.4 pg 25.9-32.7 Mean Corpuscular HGB Conc 32.8 g/dL 30.8-34.3 Platelet Count 356 K/uL 155-360 Red Cell Distri Width %CV 13.7 % 11.7-14.4 Mean Platelet Volume 9.9 fL 8.9-12.4 Total Cells Counted 100 #CELLS Neutrophils% 49 % 33-73 Lymph% 42 % 17-56 Platelet Estimate NORMAL Band% 1 % 0-8 Monocyte% 6 % 0-10 Eosinophil% 2 % 0-5 RBC Morphology NORMAL Laboratory test 02/10/2011 [facility] Sedimentation Rate 10 mm/hr 0-20 [address] [place], [place] [id number] [phone] Leukocyte Alk Phos 70 25-130 59 CBS W/Automated 11/21/2010 [facility] White Blood 6.6 K/uL 3.1-10.[address] Count [place], [place] [address] [phone] Red Blood Count 4.88 M/uL 3.90-5.40 Hemoglobin 14.0 gm/dL 11.6-15.8 Hematocrit 41.9 % 36.0-46.1 Mean Cell Volume 85.9 fl 80.9-99.0 Mean Corpuscular HGB 28.7 pg 25.9-32.7 Mean Corpuscular HGB Conc 33.4 g/dL 30.8-34.3 Platelet Count 383 K/uL High 155-360 Red Cell Distri Width %CV 13.8 % 11.7-14.4 Mean Platelet Volume 9.7 fL 8.9-12.4 Neut% 54.7 % 40.4-72.8 Lymph % 31.6 % 17.0-46.1 Bethel % 7.9 % 4.3-13.2 Eo% 4.6 % 0.0-6.6 Bas% 1.2 % High 0.0-1.1 Neut# 3.58 K/uL 1.0-7.0 Lymph # 2.07 K/uL 0.8-3.4 Bethel # 0.52 K/uL 0.3-0.9 Eos # 0.30 K/uL 0.0-0.5 Baso # 0.08 K/uL 0.0-0.1 Red Cell Distri Width SD 42.3 fl 3-47 LDL Cholesterol 11/21/2010 [facility] Cholesterol 211 mg/dL High 120-[address] [place] [address] [phone] Triglycerides 146 mg/dL 0-210 HDL Cholesterol 42 mg/dL 32-96 LDL-Cholesterol 140 mg/dL 62-185 Laboratory test 11/21/2010 [facility] Vitamin 25.2 Low 32.0-100.0 [address] D,25-Hydroxy ng/[place] [address] [phone] Comprehensive 08/22/2010 [facility] Glucose 98 mg/dL 76-115 Metabolic Panel [address] [place] [address] [phone] BUN 16 mg/dL 5-23 Creatinine 0.8 mg/dL 0.5-1.4 Glom Filtration Rate, Estimate >60 mL/min >60 If >60 mL/min >60 61 BUN/Creat 20.0 Sodium 136 mEq/L 136-145 Potassium 3.8 mEq/L 3.5-5.1 Chloride 101 mEq/L 98-107 Carbon Dioxide 26 mEq/L 21-32 Anion Gap 13 mEq/L 8-16 Calcium 8.2 mg/dL Low 8.5-10.1 Total Protein 7.5 g/dL 6.3-8.0 Albumin 3.7 g/dL 3.5-5.0 Globulin 3.8 gm/dL 1.9-4.3 Alb/Glob 1.0 Bilirubin,Total 0.4 mg/dL 0.2-1.2 Sgot/Ast 23 U/L 16-40 SGPT/Alt 43 U/L 30-65 Alkaline Phosphatase 75 U/L 50-136 Laboratory test 08/22/2010 [facility] Serum Iron 132 g/dL 25-156 [address] [place], [place] [id number] [phone] Total Iron Binding Capacity 335 g/dL 245-419 63 Transferrin %Saturation 39 % 12-57 64 Ferritin 67.0 ng/mL 3-105 65 CBS W/Automated 08/22/2010 [facility] White Blood 6.8 K/uL 3.1-10.[address] Count [place], [place] [id number] [phone] Red Blood Count 4.52 M/uL 3.90-5.40 Hemoglobin 13.3 gm/dL 11.6-15.8 Hematocrit 39.5 % 36.0-46.1 Mean Cell Volume 87.4 fl 80.9-99.0 Mean Corpuscular HGB 29.4 pg 25.9-32.7 Mean Corpuscular HGB Conc 33.7 g/dL 30.8-34.3 Platelet Count 318 K/uL 155-360 Red Cell Distri Width %CV 13.7 % 11.7-14.4 Mean Platelet Volume 10.2 fL 8.9-12.4 Neut% 55.3 % 40.4-72.8 Lymph % 32.5 % 17.0-46.1 Bethel % 7.3 % 4.3-13.2 Eo% 3.9 % 0.0-6.6 Bas% 1.0 % 0.0-1.1 Neut# 3.8 K/uL 1.0-7.0 Lymph # 2.2 K/uL 0.8-3.4 Bethel # 0.5 K/uL 0.3-0.9 Eos # 0.3 K/uL 0.0-0.5 Baso # 0.1 K/uL 0.0-0.1 Red Cell Distri Width SD 42.7 fl 3-47 Liver Function 04/27/2010 [facility] Total Protein 8.0 g/dL 6.3-8.[address] [place] [address] [phone] Albumin 3.9 g/dL 3.5-5.0 Bilirubin,Total 0.4 mg/dL 0.2-1.2 Bilirubin,Direct 0.1 mg/dL 0.1-0.4 Bilirubin,Indirect 0.3 mg/dL 0.0-0.9 Sgot/Ast 23 U/L 16-40 SGPT/Alt 42 U/L 30-65 Alkaline Phosphatase 76 U/L 50-136 Globulin 4.1 gm/dL 1.9-4.3 Alb/Glob 1.0 LDL Cholesterol 04/27/2010 [facility] Cholesterol 206 mg/dL High 120-[address] [place], [place] [id number] [phone] Triglycerides 115 mg/dL 0-210 HDL Cholesterol 44 mg/dL 32-96 LDL-Cholesterol 139 mg/dL 62-185 TSH+Free T4 04/27/2010 [facility] Thyroid Stim 3.00 uIU/mL 0.49-4.67 66 ([place] & [address] Hormone [facility] [place] [address] [phone] Free T4 0.73 ng/dL 0.71-1.85 67 CBS W/Automated 04/27/2010 [facility] White Blood 5.9 K/uL 3.1-10.[address] [place] [address] [phone] Red Blood Count 4.76 M/uL 3.90-5.40 Hemoglobin 13.6 gm/dL 11.6-15.8 Hematocrit 40.9 % 36.0-46.1 Mean Cell Volume 85.9 fl 80.9-99.0 Mean Corpuscular HGB 28.6 pg 25.9-32.7 Mean Corpuscular HGB Conc 33.3 g/dL 30.8-34.3 Platelet Count 374 K/uL High 155-360 Red Cell Distri Width %CV 14.2 % 11.7-14.4 Mean Platelet Volume 10.1 fL 8.9-12.4 Neut% 51.1 % 40.4-72.8 Lymph % 36.5 % 17.0-46.1 Bethel % 6.7 % 4.3-13.2 Eo% 4.2 % 0.0-6.6 Bas% 1.5 % High 0.0-1.1 Neut# 3.0 K/uL 1.0-7.0 Lymph # 2.2 K/uL 0.8-3.4 Bethel # 0.4 K/uL 0.3-0.9 Eos # 0.3 K/uL 0.0-0.5 Baso # 0.1 K/uL 0.0-0.1 Red Cell Distri Width SD 44 fl 3-47 Comprehensive Metabolic 04/27/2010 [facility] Glucose 95 mg/dL 76-[address] [place], [place] [id number] [phone] BUN 14 mg/dL 5-23 Creatinine 0.8 mg/dL 0.5-1.4 Glom Filtration Rate, Estimate >60 mL/min >60 If >60 mL/min >60 68 BUN/Creat 17.5 Sodium 138 mEq/L 136-145 Potassium 4.4 mEq/L 3.5-5.1 Chloride 105 mEq/L 98-107 Carbon Dioxide 25 mEq/L 21-32 Anion Gap 12 mEq/L 8-16 Calcium 9.1 mg/dL 8.5-10.1 Total Protein 8.0 g/dL 6.3-8.0 Albumin 3.9 g/dL 3.5-5.0 Globulin 4.1 gm/dL 1.9-4.3 Alb/Glob 1.0 Bilirubin,Total 0.4 mg/dL 0.2-1.2 Sgot/Ast 23 U/L 16-40 SGPT/Alt 42 U/L 30-65 Alkaline Phosphatase 76 U/L 50-136 LDL Cholesterol 11/01/2009 [facility] Cholesterol 191 mg/dL 120-[address] [place] [address] [phone] Triglycerides 93 mg/dL 0-210 HDL Cholesterol 48 mg/dL 32-96 LDL-Cholesterol 124 mg/dL 62-185 Laboratory 11/01/2009 [facility] Vitamin 21.5 Low 32.0-100.0 69 test finding [address] D,25-Hydroxy ng/[place] [address] [phone] Vitamin D,1,25 Dihydroxy 29.9 pg/mL 10.0-75.[address] [facility] Glucose 97 mg/dL 76-[address] [place] [address] [phone] BUN 9 mg/dL 5-23 Creatinine 0.9 mg/dL 0.5-1.4 Glom Filtration Rate, Estimate >60 mL/min >60 If >60 mL/min >60 71 BUN/Creat 10.0 Sodium 137 mEq/L 136-145 Potassium 4.0 mEq/L 3.5-5.1 Chloride 98 mEq/L 98-107 Carbon Dioxide 29 mEq/L 21-32 Anion Gap 14 mEq/L 8-16 Calcium 9.3 mg/dL 8.5-10.1 Total Protein 8.1 g/dL High 6.3-8.0 Albumin 4.2 g/dL 3.5-5.0 Globulin 3.9 gm/dL 1.9-4.3 Alb/Glob 1.1 Bilirubin,Total 0.4 mg/dL 0.2-1.2 Sgot/Ast 19 U/L 16-40 SGPT/Alt 36 U/L 30-65 Alkaline Phosphatase 74 U/L 50-[address] [facility] Cholesterol 199 mg/dL 120-[address] [place] [address] [phone] Triglycerides 169 mg/dL 0-210 HDL Cholesterol 46 mg/dL 32-96 LDL-Cholesterol 119 mg/dL 62-[address] [facility] Total Protein 8.1 g/dL High 6.3-8.[address] [place] [address] [phone] Albumin 4.2 g/dL 3.5-5.0 Bilirubin,Total 0.4 mg/dL 0.2-1.2 Bilirubin,Direct 0.0 mg/dL Low 0.1-0.4 Bilirubin,Indirect 0.4 mg/dL 0.0-0.9 Sgot/Ast 19 U/L 16-40 SGPT/Alt 36 U/L 30-65 Alkaline Phosphatase 74 U/L 50-136 Globulin 3.9 gm/dL 1.9-4.3 Alb/Glob 1.1 TSH+Free T4 2009 [facility] Thyroid Stim 2.85 uIU/mL 0.49-4.67 ([place] & [address] Hormone [facility]) [place], [place] [id number] [phone] Free T4 0.86 ng/dL 0.71-1.85 CBC W/Automated 2009 [facility] White Blood 8.2 K/uL 3.1-10.[address] Count [place], [place] [address] [phone] Red Blood Count 5.05 M/uL 3.90-5.40 Hemoglobin 14.2 gm/dL 11.6-15.8 Hematocrit 43.4 % 36.0-46.1 Mean Cell Volume 85.9 fl 80.9-99.0 Mean Corpuscular HGB 28.1 pg 25.9-32.7 Mean Corpuscular HGB Conc 32.7 g/dL 30.8-34.3 Platelet Count 367 K/uL High 155-360 Red Cell Distri Width %CV 13.8 % 11.7-14.4 Mean Platelet Volume 9.9 fL 8.9-12.4 Neut% 61.8 % 40.4-72.8 Lymph % 30.2 % 17.0-46.1 Bethel % 5.7 % 4.3-13.2 Eo% 1.6 % 0.0-6.6 Bas% 0.7 % 0.0-1.1 Neut# 5.1 K/uL 1.0-7.0 Lymph # 2.5 K/uL 0.8-3.4 Bethel # 0.5 K/uL 0.3-0.9 Eos # 0.1 K/uL 0.0-0.5 Baso # 0.1 K/uL 0.0-0.1 Red Cell Distri Width SD 42 fl 3-[address] [facility] Vitamin 25.0 Low 32.0-100.0 72 test finding [address] D,25-Hydroxy ng/[place] [address] [phone] Vitamin D,1,25 Dihydroxy 50.2 pg/mL 15.9-55.6 73 LDL Cholesterol 05/04/2008 [facility] Cholesterol 184 mg/dL 120-[address] [place] [address] [phone] Triglycerides 68 mg/dL 0-210 HDL Cholesterol 43 mg/dL 32-96 LDL-Cholesterol 127 mg/dL 62-185 Comp Metabolic Panel 04/17/2008 [facility] Sodium 140 mmol/L 135-[address] [place] [address] [phone] Potassium 4.6 mmol/L 3.5-5.3 Chloride 105 mmol/L 98-110 Carbon Dioxide 27 mmol/L 21-33 Calcium 9.6 mg/dL 8.6-10.2 Alkaline Phosphatase 52 U/L 33-115 Ast 14 U/L 10-30 Alt 14 U/L 6-40 Bilirubin,Total 0.6 mg/dL 0.2-1.2 Glucose 89 mg/dL 65-99 75 Urea Nitrogen 16 mg/dL 7-25 Creatinine 0.85 mg/dL 0.50-1.20 BUN/Creatinine Ratio 18.7 6-22 Protein,Total 7.5 g/dL 6.2-8.3 Albumin 4.4 g/dL 3.6-5.1 Globulin,Calculated 3.1 g/dL 2.2-3.9 A/G Ratio 1.4 1.0-2.1 Egfr Non-Afr. [place] >60 ML/MIN/1.73M2 > Or=60 Egfr >60 ML/MIN/1.73M2 > Or=60 CBC W/ Diff & PLT 04/17/2008 [facility] WBC 5.5 thous/L 3.8-10.[address] [place] [address] [phone] RBC 4.68 mill/L 3.80-5.10 Hemoglobin 13.6 g/dL 11.7-15.5 Hematocrit 40.3 % 35.0-45.0 MCV 86.0 FL 80.0-100.0 MCH 29.1 pg 27.0-33.0 MCHC 33.8 g/dL 32.0-36.0 RDW 13.6 % 11.0-15.0 Platelet Count 378 thous/L 140-400 Platelet Sufficiency NORMAL Normal Neutrophils,Absolute 3050 cells/L [phone] Bands,Absolute DNR cells/L 0-750 Metamyelocytes,Absolute DNR cells/L 0 Myelocytes,Absolute DNR cells/L 0 Promyelocytes,Absolute DNR cells/L 0 Lymphocytes,Absolute 1970 cells/L 850-3900 Monocytes,Absolute 320 cells/L 200-950 Eosinophils,Absolute 110 cells/L 15-500 Basophils,Absolute 40 cells/L 0-200 Blast Cells,Absolute DNR cells/L 0 Nucleated RBC,Absolute DNR cells/L 0 Total Neutrophils,% 55 % 38-80 Bands,% DNR % 0-10 Metamyelocytes,% DNR % Myelocytes,% DNR % Promyelocytes,% DNR % Total Lymphocytes,% 36 % 15-49 Monocytes,% 6 % 0-13 Eosinophils,% 2 % 0-8 Basophils,% 1 % 0-2 Blasts,% DNR % Nucleated RBC DNR /100WBC 0 RBC Morphology NORMAL Anisocytosis DNR Poikilocytosis DNR Microcytosis DNR Macrocytosis DNR Polychromasia DNR Hypochromasia DNR Target Cells DNR Basophilic Stippling DNR Comment DNR TSH & T4,Free 04/17/2008 [facility] TSH,3RD 2.20 mU/L 0.40-4.[address] [place], [place] [id number] [phone] T4,Free 1.1 ng/dL 0.8-1.8 Hepatic Function 04/17/2008 [facility] Alkaline Phosphatase 52 U/L 33- [address] [place], [place] [id number] [phone] Ast 14 U/L 10-30 Alt 14 U/L 6-40 Bilirubin,Total 0.6 mg/dL 0.2-1.2 Bilirubin,Direct 0.1 mg/dL < Or=0.2 Protein,Total 7.5 g/dL 6.2-8.3 Albumin 4.4 g/dL 3.6-5.1 Globulin,Calculated 3.1 g/dL 2.2-3.9 A/G Ratio 1.4 1.0-2.1 Comprehensive Metabolic 05/03/2007 [facility] Glucose 86 mg/dL 76-[address] [place] [address] [phone] BUN 8 mg/dL 5-23 Creatinine 0.9 mg/dL 0.5-1.4 BUN/Creat 8.8 Sodium 138 mEq/L 136-145 Potassium 3.5 mEq/L 3.5-5.1 Chloride 101 mEq/L 98-107 Carbon Dioxide 25 mEq/L 21-32 Anion Gap 16 mEq/L 8-16 Calcium 8.8 mg/dL 8.5-10.1 Total Protein 7.6 g/dL 6.3-8.0 Albumin 3.9 g/dL 3.5-5.0 Globulin 3.7 gm/dL 1.9-4.3 Alb/Glob 1.1 Bilirubin,Total 0.3 mg/dL 0.2-1.2 Sgot/Ast 16 U/L 16-40 SGPT/Alt 35 U/L 30-65 Alkaline Phosphatase 59 U/L 50-136 LDL Cholesterol 05/03/2007 [facility] Cholesterol 194 mg/dL 120-[address] [place] [address] [phone] Triglycerides 115 mg/dL 0-210 HDL Cholesterol 40 mg/dL 32-96 LDL-Cholesterol 131 mg/dL 62-185 Laboratory test 05/03/2007 [facility] Thyroid Stim 3.76 uIU/mL 0.49-4.[address] [place] [address] [phone] CBC 05/03/2007 [facility] White Blood 6.4 K/uL 3.4 -10.[address] [place] [address] [phone] Red Blood Count 4.35 M/uL 3.90-5.20 Hemoglobin 13.0 gm/dL 11.5-15.5 Hematocrit 37.0 % 34.0-46.0 Mean Cell Volume 85.0 fL 80.0-96.0 Mean Corpuscular HGB 29.9 pg 27.0-33.0 Mean Corpuscular HGB Conc 35.2 g/dL 31.7-36.0 Platelet Count 380 K/uL 150-400 Red Cell Distri Width %CV 13.0 % 11.6-15.8 Mean Platelet Volume 7.1 fl 6.6-10.6 Laboratory test 04/18/2007 [facility] Estrogen,Total 98 pg/mL . [address] [place] [address] [phone] Progesterone 1.5 ng/mL . 78 Thyroid Stim Hormone 2.25 uIU/mL 0.49-4.67 FSH 3.3 mIU/mL 79 Luteinizing Hormone 15.3 mIU/mL 80 Laboratory test 12/14/2006 [facility] Estrogen,Total 210 pg/mL . [address] [place] [address] [phone] Progesterone 0.9 ng/mL . 82 Thyroid Stim Hormone 2.44 uIU/mL 0.49-4.67 FSH 5.4 mIU/mL 83 Liver Function 12/14/2006 [facility] Total Protein 7.6 g/dL 6.3-8.[address] [place] [address] [phone] Albumin 3.8 g/dL 3.5-5.0 Bilirubin,Total 0.4 mg/dL 0.2-1.2 Bilirubin,Direct 0.2 mg/dL 0.1-0.4 Bilirubin,Indirect 0.2 mg/dL 0.0-0.9 Sgot/Ast 24 U/L 16-40 SGPT/Alt 44 U/L 30-65 Alkaline Phosphatase 68 U/L 50-136 Comp Metabolic Panel 04/14/2006 [facility] Sodium 140 mmol/L 135-[address] [place] [address] [phone] Potassium 5.0 mmol/L 3.5-5.3 Chloride 105 mmol/L 98-110 Carbon Dioxide 25 mmol/L 21-33 Calcium 9.7 mg/dL 8.5-10.4 Alkaline Phosphatase 54 U/L 20-125 Ast 18 U/L 3-35 Alt 15 U/L 3-40 Bilirubin,Total 0.5 mg/dL 0.2-1.3 Glucose 91 mg/dL 65-99 84 Urea Nitrogen 9 mg/dL 7-25 Creatinine 0.9 mg/dL 0.5-1.2 BUN/Creatinine Ratio 10.3 6-25 Protein,Total 7.3 g/dL 6.0-8.3 Albumin 4.4 g/dL 3.7-5.1 Globulin,Calculated 2.9 g/dL 2.2-4.2 A/G Ratio 1.5 0.8-2.0 GFR Estimated >60 ML/MIN/1.7 >59 85 CBC W/ Diff & PLT 04/14/2006 [facility] WBC 5.8 thous/L 3.8-10.8 [address] [place], [place] [id number] [phone] RBC 4.52 mill/L 3.80-5.10 Hemoglobin 13.3 g/dL 11.7-15.5 Hematocrit 39.5 % 35.0-45.0 MCV 87.3 FL 80.0-100.0 MCH 29.4 pg 27.0-33.0 MCHC 33.7 g/dL 32.0-36.0 RDW 13.0 % 11.0-15.0 Platelet Count 337 thous/L 140-400 Platelet Sufficiency NORMAL Neutrophils,Absolute 3310 cells/L 2767-3966 Bands,Absolute DNR cells/L 0-750 Metamyelocytes,Absolute DNR cells/L 0 Myelocytes,Absolute DNR cells/L 0 Promyelocytes,Absolute DNR cells/L 0 Lymphocytes,Absolute 2080 cells/L 850-3900 Monocytes,Absolute 240 cells/L 200-950 Eosinophils,Absolute 180 cells/L 15-500 Basophils,Absolute 20 cells/L 0-200 Blast Cells,Absolute DNR cells/L 0 Nucleated RBC,Absolute DNR cells/L 0 Total Neutrophils,% 57 % 38-80 Bands,% DNR % 0-10 Metamyelocytes,% DNR % Myelocytes,% DNR % Promyelocytes,% DNR % Total Lymphocytes,% 36 % 15-49 Monocytes,% 4 % 0-13 Eosinophils,% 3 % 0-8 Basophils,% 0 % 0-2 Blasts,% DNR % Nucleated RBC DNR /100WBC 0 RBC Morphology NORMAL Anisocytosis DNR Poikilocytosis DNR Microcytosis DNR Macrocytosis DNR Polychromasia DNR Hypochromasia DNR Target Cells DNR Basophilic Stippling DNR Comment DNR Lipid Panel 04/14/2006 [facility] Cholesterol 186 mg/dL <200 6 [facility] [place] [address] [phone] HDL Cholesterol 44 mg/dL >40 86 Triglycerides 103 mg/dL <150 Cholesterol/HDL Ratio 4.2 <4.4 LDL Chol,Calculated 121 mg/dL <130 87 TSH & T4,Free 04/14/2006 [facility] TSH 2.14 mU/L 0.40-5.50 88 6 [place] [address] [phone] T4,Free 1.1 ng/dL 0.8-1.8 CBC W/ Diff & PLT 04/13/2005 [facility] WBC 7.0 thous/L 3.8-10.8 6 [place] [address] [phone] RBC 4.82 mill/L 3.80-5.10 Hemoglobin 13.8 g/dL 11.7-15.5 Hematocrit 42.4 % 35.0-45.0 MCV 87.8 FL 80.0-100.0 MCH 28.7 pg 27.0-33.0 MCHC 32.7 g/dL 32.0-36.0 RDW 14.1 % 11.0-15.0 Platelet Count 362 thous/L 140-400 Platelet Sufficiency NORMAL Neutrophils,Absolute 4350 cells/L 0889-1808 Bands,Absolute DNR cells/L 0-750 Metamyelocytes,Absolute DNR cells/L 0 Myelocytes,Absolute DNR cells/L 0 Promyelocytes,Absolute DNR cells/L 0 Lymphocytes,Absolute 2140 cells/L 850-3900 Monocytes,Absolute 280 cells/L 200-950 Eosinophils,Absolute 180 cells/L 15-500 Basophils,Absolute 20 cells/L 0-200 Blast Cells,Absolute DNR cells/L 0 Nucleated RBC,Absolute DNR cells/L 0 Total Neutrophils,% 62 % 38-80 Bands,% DNR % 0-10 Metamyelocytes,% DNR % Myelocytes,% DNR % Promyelocytes,% DNR % Total Lymphocytes,% 31 % 15-49 Monocytes,% 4 % 0-13 Eosinophils,% 3 % 0-8 Basophils,% 0 % 0-2 Blasts,% DNR % Nucleated RBC DNR /100WBC 0 RBC Morphology NORMAL Anisocytosis DNR Poikilocytosis DNR Microcytosis DNR Macrocytosis DNR Polychromasia DNR Hypochromasia DNR Target Cells DNR Basophilic Stippling DNR Comment DNR Comp Metabolic Panel 04/13/2005 [facility] Sodium 139 mmol/L 135-146 6 [place] [address] [phone] Potassium 4.1 mmol/L 3.5-5.3 Chloride 104 mmol/L 98-110 Carbon Dioxide 27 mmol/L 21-33 Calcium 9.4 mg/dL 8.5-10.4 Alkaline Phosphatase 51 U/L 20-125 Ast 14 U/L 2-35 Alt 13 U/L 2-40 Bilirubin,Total 0.5 mg/dL 0.2-1.3 Glucose 92 mg/dL 65-99 89 Urea Nitrogen 14 mg/dL 7-25 Creatinine 0.8 mg/dL 0.5-1.2 BUN/Creatinine Ratio 17.3 6-25 Protein,Total 7.3 g/dL 6.0-8.3 Albumin 4.3 g/dL 3.7-5.1 Globulin,Calculated 3.0 g/dL 2.2-4.2 A/G Ratio 1.5 0.8-2.0 GFR Estimated >60 ML/MIN/1.7 >59 90 TSH & T4,Free 04/13/2005 [facility] TSH 2.03 mU/L 0.40-5.50 91 6 [place] [address] [phone] T4,Free 1.0 ng/dL 0.8-1.8 Lipid Panel 04/13/2005 [facility] Cholesterol 192 mg/dL <200 6 [place] [address] [phone] HDL Cholesterol 46 mg/dL >40 92 Triglycerides 135 mg/dL <150 Cholesterol/HDL Ratio 4.2 <4.4 LDL Chol,Calculated 119 mg/dL <130 93 1 Z79.899 2 Note: Persistent reduction for 3 months or more in an eGFR <60 mL/min/1.73 m2 defines CKD. Patients with eGFR values >/=60 mL/min/1.73 m2 may also have CKD if evidence of persistent proteinuria is present. The original MDRD equation for estimated GFR is not valid for patients less than 18 years of age. Additional information may be found at www.[email or web address]. 3 E55.9, Z01.419, D75.9 4 Note: Persistent reduction for 3 months or more in an eGFR <60 mL/min/1.73 m2 defines CKD. Patients with eGFR values >/=60 mL/min/1.73 m2 may also have CKD if evidence of persistent proteinuria is present. The original MDRD equation for estimated GFR is not valid for patients less than 18 years of age. Additional information may be found at www.kdoqi.org. 5 Values below the stated reference ranges of AST and ALT can be seen in normal populations. Clinical correlation is suggested. 6 Reference Guidelines*: Desirable: ........... < 200 mg/dL Borderline High: ..... 200-239 mg/dL High: ................ >=240 mg/dL * The National Cholesterol Education Program (NCEP) 7 Reference Guidelines*: Normal: ............. < 150 mg/dL Borderline High: .... 150-199 mg/dL High: ............... 200-499 mg/dL Very High: .......... > 500 mg/dL * Source: National Cholesterol Education Program (NCEP) 8 Reference Guidelines*: Low HDL: ..... < 40 mg/dL Normal: ..... 40-60 mg/dL Desirable: ... > 60 mg/dL *The National Cholesterol Education Program(NCEP) 9 Reference Guidelines*: Optimal:........... <100 mg/dL Near Optimal....... 100-129 mg/dL Borderline High.... 130-159 mg/dL High............... 160-189 mg/dL Very High.......... >=190 mg/dL * Source: National Cholesterol Education Program (NCEP) 10 Vitamin D deficiency has been defined by the [employer] and an Endocrine Society practice guideline as a level of serum 25-OH vitamin D less than 20 ng/mL (1,2). The Endocrine Society went on to further define vitamin D insufficiency as a level between 21 and 29 ng/mL (2). 1. IOM ([employer] of [employer]). 2010. Dietary reference intakes for calcium and D. [place]: The National Academies Press. 2. Iwona Alcocer, Sintia FLAHERTY, et al. Evaluation, treatment, and prevention of vitamin D deficiency: an Endocrine Society clinical practice guideline. JCEM. 2010; 96(7):1911-30. Performed at: [facility] [employer] [id number] Weaving Loom Operator: Armida Connors MD, Phone: [phone] H66.93 E78.5 E03.9 M81.8 12 Note: Persistent reduction for 3 months or more in an eGFR <60 mL/min/1.73 m2 defines CKD. Patients with eGFR values >/=60 mL/min/1.73 m2 may also have CKD if evidence of persistent proteinuria is present. The original MDRD equation for estimated GFR is not valid for patients less than 18 years of age. Additional information may be found at www.kdoqi.org. 13 Vitamin D deficiency has been defined by the [employer] and an Endocrine Society practice guideline as a level of serum 25-OH vitamin D less than 20 ng/mL (1,2). The Endocrine Society went on to further define vitamin D insufficiency as a level between 21 and 29 ng/mL (2). 1. IOM ([employer]). 2010. Dietary reference intakes for calcium and D. [place]: The National Academies Press. 2. Iwona Alcocer, Sintia FLAHERTY, et al. Evaluation, treatment, and prevention of vitamin D deficiency: an Endocrine Society clinical practice guideline. JCEM. 2010; 96(7):1911-30. Performed at: [facility] [employer] [id number] Weaving Loom Operator: Armida Connors MD, Phone: [phone] 14 Reference Guidelines*: Desirable: ........... < 200 mg/dL Borderline High: ..... 200-239 mg/dL High: ................ >=240 mg/dL * The National Cholesterol Education Program (NCEP) 15 Reference Guidelines*: Normal: ............. < 150 mg/dL Borderline High: .... 150-199 mg/dL High: ............... 200-499 mg/dL Very High: .......... > 500 mg/dL * Source: National Cholesterol Education Program (NCEP) 16 Reference Guidelines*: Low HDL: ..... < 40 mg/dL Normal: ..... 40-60 mg/dL Desirable: ... > 60 mg/dL *The National Cholesterol Education Program(NCEP) 17 Reference Guidelines*: Optimal:........... <100 mg/dL Near Optimal....... 100-129 mg/dL Borderline High.... 130-159 mg/dL High............... 160-189 mg/dL Very High.......... >=190 mg/dL * Source: National Cholesterol Education Program (NCEP) 18 D75.9, R19.7 19 NEGATIVE FOR C. DIFFICILE TOXIN A/B. Method: Alere Tox A/B Quik Chek Rapid Immunoassay CORRELATE RESULTS WITH CLINICAL CONDITION. 20 D75.9 R19.7 D75.9,R19.7 D75.9,R19.7 21 NO ENTERIC PATHOGENS ISOLATED 22 ................................................... 23 INCLUDES TESTING FOR SALMONELLA, SHIGELLA, AEROMONAS, 24 PLESIOMONAS, CAMPYLOBACTER, AND E. COLI 0157:H7 25 ................................................... 26 YERSINIA AND VIBRIO ARE NOT ROUTINELY SCREENED FOR AND 27 SHOULD BE REQUESTED SEPARATELY 28 SHIGA TOXIN 1 NOT DETECTED 29 SHIGA TOXIN 2 NOT DETECTED Method: ImmunoCard STAT/EHEC Rapid Immunochromatographic Assay 30 NEGATIVE FOR ROTAVIRUS ANTIGEN. Performed at: - [facility] [id number] Weaving Loom Operator: Armida Connors MD, Phone: [phone] 31 Note: Persistent reduction for 3 months or more in an eGFR <60 mL/min/1.73 m2 defines CKD. Patients with eGFR values >/=60 mL/min/1.73 m2 may also have CKD if evidence of persistent proteinuria is present. The original MDRD equation for estimated GFR is not valid for patients less than 18 years of age. Additional information may be found at www.kdoqi.org. 32 Note: Persistent reduction for 3 months or more in an eGFR <60 mL/min/1.73 m2 defines CKD. Patients with eGFR values >/=60 mL/min/1.73 m2 may also have CKD if evidence of persistent proteinuria is present. The original MDRD equation for estimated GFR is not valid for patients less than 18 years of age. Additional information may be found at www.[email or web address]. 33 Reference Guidelines*: Desirable: ........... < 200 mg/dL Borderline High: ..... 200-239 mg/dL High: ................ >=240 mg/dL * The National Cholesterol Education Program (NCEP) 34 Reference Guidelines*: Normal: ............. < 150 mg/dL Borderline High: .... 150-199 mg/dL High: ............... 200-499 mg/dL Very High: .......... > 500 mg/dL * Source: National Cholesterol Education Program (NCEP) 35 Reference Guidelines*: Low HDL: ..... < 40 mg/dL Normal: ..... 40-60 mg/dL Desirable: ... > 60 mg/dL *The National Cholesterol Education Program(NCEP) 36 Reference Guidelines*: Optimal:........... <100 mg/dL Near Optimal....... 100-129 mg/dL Borderline High.... 130-159 mg/dL High............... 160-189 mg/dL Very High.......... >=190 mg/dL * Source: National Cholesterol Education Program (NCEP) 37 Vitamin D deficiency has been defined by the [employer] and an Endocrine Society practice guideline as a level of serum 25-OH vitamin D less than 20 ng/mL (1,2). The Endocrine Society went on to further define vitamin D insufficiency as a level between 21 and 29 ng/mL (2). 1. IOM ([employer]). 2010. Dietary reference intakes for calcium and D. [place]: The National Academies Press. 2. Simi MF, Iwona NC, Sintia FLAHERTY, et al. Evaluation, treatment, and prevention of vitamin D deficiency: an Endocrine Society clinical practice guideline. JCEM. 2010; 96(7):1911-30. Performed at: RN - [facility] [address] [id number] Weaving Loom Operator: Armida Connors MD, Phone: [phone] 38 Reference Guidelines*: Desirable: ........... < 200 mg/dL Borderline High: ..... 200-239 mg/dL High: ................ >=240 mg/dL * The National Cholesterol Education Program (NCEP) 39 Reference Guidelines*: Normal: ............. < 150 mg/dL Borderline High: .... 150-199 mg/dL High: ............... 200-499 mg/dL Very High: .......... > 500 mg/dL * Source: National Cholesterol Education Program (NCEP) 40 Reference Guidelines*: Low HDL: ..... < 40 mg/dL Normal: ..... 40-60 mg/dL Desirable: ... > 60 mg/dL *The National Cholesterol Education Program(NCEP) 41 Reference Guidelines*: Optimal:........... <100 mg/dL Near Optimal....... 100-129 mg/dL Borderline High.... 130-159 mg/dL High............... 160-189 mg/dL Very High.......... >=190 mg/dL * Source: National Cholesterol Education Program (NCEP) 42 Vitamin D deficiency has been defined by the [employer] and an Endocrine Society practice guideline as a level of serum 25-OH vitamin D less than 20 ng/mL (1,2). The Endocrine Society went on to further define vitamin D insufficiency as a level between 21 and 29 ng/mL (2). 1. IOM ([employer]). 2010. Dietary reference intakes for calcium and D. [place]: The National Academies Press. 2. Simi MF, Iwona HDZ, Sintia FLAHERTY, et al. Evaluation, treatment, and prevention of vitamin D deficiency: an Endocrine Society clinical practice guideline. JCEM. 2010; 96(7):1911-30. Performed at: RN - [facility] [address] [id number] Weaving Loom Operator: Armida Connors MD, Phone: [phone] 43 Note: Persistent reduction for 3 months or more in an eGFR <60 mL/min/1.73 m2 defines CKD. Patients with eGFR values >/=60 mL/min/1.73 m2 may also have CKD if evidence of persistent proteinuria is present. The original MDRD equation for estimated GFR is not valid for patients less than 18 years of age. Additional information may be found at www.kdoqi.org. 44 Note: Persistent reduction for 3 months or more in an eGFR <60 mL/min/1.73 m2 defines CKD. Patients with eGFR values >/=60 mL/min/1.73 m2 may also have CKD if evidence of persistent proteinuria is present. The original MDRD equation for estimated GFR is not valid for patients less than 18 years of age. Additional information may be found at www.kdoqi.org. 45 Vitamin D deficiency has been defined by the [employer] and an Endocrine Society practice guideline as a level of serum 25-OH vitamin D less than 20 ng/mL (1,2). The Endocrine Society went on to further define vitamin D insufficiency as a level between 21 and 29 ng/mL (2). 1. IOM ([employer]). 2010. Dietary reference intakes for calcium and D. [place]: The National Academies Press. 2. Iwona Alcocer, Sintia FLAHERTY, et al. Evaluation, treatment, and prevention of vitamin D deficiency: an Endocrine Society clinical practice guideline. JCEM. 2010; 96(7):1911-30. Performed at: RN - [facility] [address] [id number] Weaving Loom Operator: Armida Connors MD, Phone: [phone] 46 Note: Persistent reduction for 3 months or more in an eGFR <60 mL/min/1.73 m2 defines CKD. Patients with eGFR values >/=60 mL/min/1.73 m2 may also have CKD if evidence of persistent proteinuria is present. The original MDRD equation for estimated GFR is not valid for patients less than 18 years of age. Additional information may be found at www.kdoqi.org. 47 Vitamin D deficiency has been defined by the [employer] and an Endocrine Society practice guideline as a level of serum 25-OH vitamin D less than 20 ng/mL (1,2). The Endocrine Society went on to further define vitamin D insufficiency as a level between 21 and 29 ng/mL (2). 1. IOM ([employer]). 2010. Dietary reference intakes for calcium and D. [place]: The National Academies Press. 2. Iwona Alcocer, Sintia FLAHERTY, et al. Evaluation, treatment, and prevention of vitamin D deficiency: an Endocrine Society clinical practice guideline. JCEM. 2010; 96(7):1911-30. Performed at: RN - [facility] [address] [id number] Weaving Loom Operator: Daniel Desouza MD, Phone: [phone] 48 Note: Persistent reduction for 3 months or more in an eGFR <60 mL/min/1.73 m2 defines CKD. Patients with eGFR values >/=60 mL/min/1.73 m2 may also have CKD if evidence of persistent proteinuria is present. The original MDRD equation for estimated GFR is not valid for patients less than 18 years of age. Additional information may be found at www.kdoqi.org. 49 Note: Persistent reduction for 3 months or more in an eGFR <60 mL/min/1.73 m2 defines CKD. Patients with eGFR values >/=60 mL/min/1.73 m2 may also have CKD if evidence of persistent proteinuria is present. The original MDRD equation for estimated GFR is not valid for patients less than 18 years of age. Additional information may be found at www.[email or web address]. 50 QUERY: @[facility] Pat ID: [id number] QUERY: @[facility] Req #: [id number] QUERY: @[facility] Pat ID: [id number] QUERY: @[facility] Req #: [id number] QUERY: Is the Patient Fasting? Y 52 QUERY: @[facility] Pat ID: [id number] QUERY: @[facility] Req #: [id number] QUERY: Is the Patient Fasting? Y 53 QUERY: @[facility] Pat ID: [id number] QUERY: @[facility] Req #: [id number] QUERY: @[facility] Pat ID: [id number] QUERY: @[facility] Req #: [id number] 55 Result: NEGATIVE for the JAK2 V617F mutation. Interpretation: The G to T nucleotide change encoding the V617F mutation was not detected. This result does not rule out the presence of the JAK2 mutation at a level below the sensitivity of detection of this assay, or the presence of other mutations within JAK2 not detected by this assay. This result does not rule out a diagnosis of polycythemia vera, essential thrombocythemia or idiopathic myelofibrosis as the V617F mutation is not detected in all patients with these disorders. 56 Shabnam Patiño, PhD, [facility] Director, Molecular Genetics [facility] [place], [place] 57 JAK2 is a cytoplasmic tyrosine kinase with a dodson role in signal transduction from multiple hematopoietic growth factor receptors. A point mutation within exon 14 of the JAK2 gene (X2175P) encoding a valine to phenylalanine substitution at position 617 of the JAK2 protein (V617F) has been identified in most patients with polycythemia vera, and in about half of those with either essential thrombocythemia or idiopathic myelofibrosis. The V617F has also been detected, although infrequently, in other myeloid disorders such as chronic myelomonocytic leukemia and chronic neutrophilic leukemia. V617F is an acquired mutation that alters a highly conserved valine present in the negative regulatory JH2 domain of the JAK2 protein and is predicted to dysregulate kinase activity. Methodology: Genomic DNA was purified from the provided specimen. Allele-specific PCR using fluorescent primers was used to simultaneously amplify both the wild type and mutant alleles. Amplification products were analyzed by capillary electrophoresis. This assay has a sensitivity to detect approximately a 5% population of cells containing the V617F mutation in a background of non-mutant cells. Reference: Arturo A and Aryan POSADAS. The JAK2 V617F Tyrosine Kinase Mutation in Myeloproliferative Disorders: Status Report and Immediate Implications for Disease Classification and Diagnosis. [facility] Clin Proc 2005;80(7):947-958. Performed at: [facility] [employer] [id number] Weaving Loom Operator: Austin Zepeda MD, Phone: [phone] QUERY: @[facility] Pat ID: [id number] QUERY: @[facility] Req #: [id number] Performed at: [address] [id number] Weaving Loom Operator: Daniel Desouza MD, Phone: [phone] 60 Recent studies consider the lower limit of 32.0 ng/mL to be a threshold for optimal health. Maynor BW. J Nutr. 2004;135(2):317-22. Performed at: [facility] [employer] [id number] Weaving Loom Operator: Daniel Desouza MD, Phone: [phone] 61 Note: Persistent reduction for 3 months or more in an eGFR <60 mL/min/1.73 m2 defines CKD. Patients with eGFR values >/=60 mL/min/1.73 m2 may also have CKD if evidence of persistent proteinuria is present. The original MDRD equation for estimated GFR is not valid for patients less than 18 years of age. Additional information may be found at www.[email or web address]. 62 QUERY: @[facility] Pat ID: [id number] QUERY: @[facility] Req #: [id number] QUERY: Is the Patient Fasting? N 63 QUERY: @[facility] Pat ID: [id number] QUERY: @[facility] Req #: [id number] QUERY: Is the Patient Fasting? N 64 QUERY: @[facility] Pat ID: [id number] QUERY: @[facility] Req #: [id number] 65 QUERY: @[facility] Pat ID: [id number] QUERY: @[facility] Req #: [id number] 66 QUERY: @[facility] Pat ID: [id number] QUERY: @[facility] Req #: [id number] 67 QUERY: @[facility] Pat ID: [id number] QUERY: @[facility] Req #: [id number] 68 Note: Persistent reduction for 3 months or more in an eGFR <60 mL/min/1.73 m2 defines CKD. Patients with eGFR values >/=60 mL/min/1.73 m2 may also have CKD if evidence of persistent proteinuria is present. The original MDRD equation for estimated GFR is not valid for patients less than 18 years of age. Additional information may be found at www.[email or web address]. 69 Recent studies consider the lower limit of 32.0 ng/mL to be a threshold for optimal health. Maynor LEE. J Nutr. 2004;135(2):317-22. 70 Performed at: - [facility] [address] [id number] Weaving Loom Operator: Daniel Desouza MD Performed at: - [facility] [address] [id number] Weaving Loom Operator: London Ventura MD 71 Note: Persistent reduction for 3 months or more in an eGFR <60 mL/min/1.73 m2 defines CKD. Patients with eGFR values >/=60 mL/min/1.73 m2 may also have CKD if evidence of persistent proteinuria is present. The original MDRD equation for estimated GFR is not valid for patients less than 18 years of age. Additional information may be found at www.[email or web address]. 72 Recent studies consider the lower limit of 32.0 ng/mL to be a threshold for optimal health. Maynor LEE. J Nutr. 2004;135(2):317-22. 73 Please note reference interval change 74 FASTING 75 GLUCOSE REFERENCE RANGE BASED ON FASTING SPECIMEN. 76 TSH REFERENCE RANGE: FIRST TRIMESTER - 0.20 - 4.70 mU/L SECOND TRIMESTER - 0.30 - 4.10 mU/L THIRD TRIMESTER - 0.40 - 2.70 mU/L 77 Prepubertal <40 Female Cycle: 1-10 Days 61 - 394 11-20 Days 122 - 437 21-30 Days 156 - 350 Post-Menopausal <40 HMG Treatment for Ovulation Induction: 400 - 800 78 Female: Follicular 0.2 - 1.4 Luteal 3.3 - 25.6 Mid-luteal 4.4 - 28.0 Postmenopausal 0.0 - 0.7 : 1st Trimester 11.2 - 90.0 2nd Trimester 25.5 - 89.4 3rd Trimester 48.4 - 422.5 79 NORMALLY MENSTRUATING FEMALES: Follicular Phase:...............4-13 mIU/mL Mid-Cycle Peak:.................5-22 mIU/mL Luteal Phase:...................2-13 mIU/mL Postmenopausal Female:........20-138 mIU/mL 80 NORMALLY MENSTRUATING FEMALES: Follicular Phase.............1-18 mIU/mL Mid-Cycle Peak.............24-105 mIU/mL Luteal Phase...............0.4-20 mIU/mL Postmenopausal .............15-62 mIU/mL 81 Prepubertal <40 Female Cycle: 1-10 Days 61 - 394 11-20 Days 122 - 437 21-30 Days 156 - 350 Post-Menopausal <40 HMG Treatment for Ovulation Induction: 400 - 800 82 Female: Follicular 0.2 - 1.4 Luteal 3.3 - 25.6 Mid-luteal 4.4 - 28.0 Postmenopausal 0.0 - 0.7 : 1st Trimester 11.2 - 90.0 2nd Trimester 25.5 - 89.4 3rd Trimester 48.4 - 422.5 83 NORMALLY MENSTRUATING FEMALES: Follicular Phase:...............4-13 mIU/mL Mid-Cycle Peak:.................5-22 mIU/mL Luteal Phase:...................2-13 mIU/mL Postmenopausal Female:........20-138 mIU/mL 84 GLUCOSE REFERENCE RANGE BASED ON FASTING SPECIMEN. 85 THE GFR ESTIMATE IS NOT ADJUSTED FOR RACE, IF THE PATIENT'S RACE IS -[place], THE GFR ESTIMATE MUST BE MULTIPLIED BY A FACTOR OF 1.21. 86 HDL REFERENCE RANGES ADULTS (20 YEARS & OLDER) DESIRABLE: > OR=60 MG/DL HIGHER RISK: <40 MG/DL 87 LDL-CHOLESTEROL RISK CATEGORY* GOAL VERY HIGH (E.G. DIABETES + CVD) <70 MG/DL HIGH (DIABETICS; CHD RISK EQUIVALENTS) <100 MG/DL MODERATELY HIGH (MULTIPLE(2+) RISK FACTORS) <130 MG/DL 0 TO 1 RISK FACTORS <160 MG/DL * NCEP REPORT. CIRCULATION 2004; 110: 227-239 88 TSH REFERENCE RANGE: FIRST TRIMESTER - 0.30 - 4.50 mU/L SECOND TRIMESTER - 0.50 - 4.60 mU/L THIRD TRIMESTER - 0.80 - 5.20 mU/L 89 GLUCOSE REFERENCE RANGE BASED ON FASTING SPECIMEN. 90 THE GFR ESTIMATE IS NOT ADJUSTED FOR RACE, IF THE PATIENT'S RACE IS -[place], THE GFR ESTIMATE MUST BE MULTIPLIED BY A FACTOR OF 1.21. 91 TSH REFERENCE RANGE: FIRST TRIMESTER - 0.30 - 4.50 mU/L SECOND TRIMESTER - 0.50 - 4.60 mU/L THIRD TRIMESTER - 0.80 - 5.20 mU/L 92 HDL REFERENCE RANGES ADULTS (20 YEARS & OLDER) DESIRABLE: > OR=60 MG/DL HIGHER RISK: <40 MG/DL 93 LDL-CHOLESTEROL RISK CATEGORY* GOAL VERY HIGH (E.G. DIABETES + CVD) <70 MG/DL HIGH (DIABETICS; CHD RISK EQUIVALENTS) <100 MG/DL MODERATELY HIGH (MULTIPLE(2+) RISK FACTORS) <130 MG/DL 0 TO 1 RISK FACTORS <160 MG/DL * NCEP REPORT. CIRCULATION 2004; 110: 227-239 Procedures Date Code Description Status 06/29/2013 [id number] Mammogram Completed 09/14/2012 [id number] Bone Density Completed 09/14/2012 [id number] Bone Mineral Density Test Completed 05/20/2010 50512 Bone Density,Vertebral Fracture Completed 05/20/2010 95420 Bone Density Completed 04/13/2005 12007 EKG-Tracing & Report Completed Encounters Type Date Location Provider Dx Diagnosis Office Visit 12/20/2018 2:45p Main Office Mely Leos MD E66.9 Obesity, unspecified R53.83 Other fatigue E55.9 Vitamin D deficiency, unspecified M25.561 Pain in right knee M25.562 Pain in left knee Office Visit 04/11/2018 4:15p Main Office Mely Leos MD E55.9 Vitamin D deficiency, unspecified E66.9 Obesity, unspecified Z01.419 Encntr for skilled nursing professional exam (general) (routine) w/o abn findings M25.561 Pain in right knee M25.562 Pain in left knee Z00.00 Encntr for general adult medical exam w/o abnormal findings Office Visit 08/10/2017 10:15a Main Office Jasen Armenta J20.9 Acute bronchitis, unspecified Office Visit 04/15/2017 9:30a Main Office Mely Leos MD J20.9 Acute bronchitis, unspecified J01.90 Acute sinusitis, unspecified Office Visit 03/28/2017 10:00a Main Office Mely Leos MD K62.5 Hemorrhage of anus and rectum E55.9 Vitamin D deficiency, unspecified E66.9 Obesity, unspecified Office Visit 11/09/2016 3:15p Main Office Mely Leos MD R19.7 Diarrhea, unspecified Office Visit 10/27/2016 4:00p Main Office Mely Leos MD R19.7 Diarrhea, unspecified Office Visit 03/18/2016 3:30p Main Office Mely Leos MD E55.9 Vitamin D deficiency, unspecified D75.9 Disease of blood and blood-forming organs, unspecified Z01.419 Encntr for skilled nursing professional exam (general) (routine) w/o abn findings Office Visit 10/27/2015 12:45p Main Office Mely Leos MD J02.9 Acute pharyngitis, unspecified J20.9 Acute bronchitis, unspecified Office Visit 10/01/2015 3:00p Main Office Mely Leos MD E55.9 Vitamin D deficiency, unspecified D75.9 Disease of blood and blood-forming organs, unspecified Z12.4 Encounter for screening for malignant neoplasm of cervix Office Visit 03/03/2015 3:30p Main Office Mely Leos MD 268.9 Vitamin D Deficiency Unspec 795.04 Pap Smear Cervix W/HGSIL 795.03 Pap Smear Cervix W/LGSIL V72.32 Pap Smear Confirmation 278.00 Obesity Unspec 289.90 Thrombocytosis/Blood Dyacrasia V72.31 Routine Brush Stainer Examination GENERAL General Office Visit 11/13/2014 9:00a Main Office Mely Leos MD 719.46 Pain Joint Lower Leg GENERAL General Office Visit 08/20/2014 3:30p Main Office Mely Leos MD 268.9 Vitamin D Deficiency Unspec 278.00 Obesity Unspec V72.2 Examination Dental V72.0 Examination Eyes & Vision V70.0 Examination General Medical Routine AT Health Care Facility 289.90 Thrombocytosis/Blood Dyacrasia GENERAL General Office Visit 01/23/2014 Main Office Mely Leos, 289.90 Thrombocytosis/Blood 2:30p MD Mera 268.9 Vitamin D Deficiency Unspec 278.00 Obesity Unspec V72.31 Routine Brush Stainer Examination 795.04 Pap Smear Cervix W/HGSIL 795.03 Pap Smear Cervix W/LGSIL V72.32 Pap Smear Confirmation GENERAL General Office Visit 08/20/2013 Main Office Mely Leos 289.90 Thrombocytosis/Blood 3:00p MD Mera 268.9 Vitamin D Deficiency Unspec V72.2 Examination Dental V72.0 Examination Eyes & Vision V70.0 Examination General Medical Routine AT [facility] GENERAL General Office Visit 03/30/2013 Main Office Mely Leos 289.90 Thrombocytosis/Blood 10:00a MD Mera 268.9 Vitamin D Deficiency Unspec 278.00 Obesity Unspec GENERAL General Office Visit 09/14/2012 11:00a Main Office Mely Leos MD V72.31 Routine Brush Stainer Examination 795.03 Pap Smear Cervix W/LGSIL 795.04 Pap Smear Cervix W/HGSIL V72.32 Pap Smear Confirmation GENERAL General Office Visit 08/22/2012 11:45a Main Office Mely Leos MD 465.9 URI Upper Respiratory Infections Acute Unspec Sites GENERAL General Office Visit 07/12/2012 Main Office Mely Leos 289.90 Thrombocytosis/Blood 2:45p MD Mera 268.9 Vitamin D Deficiency Unspec V72.2 Examination Dental V72.0 Examination Eyes & Vision V70.0 Examination General Medical Routine AT Health Care Facility 274.9 Gout Unspec GENERAL General Office Visit 04/18/2012 11:45a Main Office Mely Leos MD 382.9 Otitis Media Unspec GENERAL General Office Visit 12/22/2011 Main Office Mely Leos 289.90 Thrombocytosis/Blood 2:00p MD Mera 268.9 Vitamin D Deficiency Unspec 272.4 Hyperlipidemia Other Unspec GENERAL General Office Visit 06/23/2011 Main Office Mely Leos 289.90 Thrombocytosis/Blood 3:15p MD Mera V72.2 Examination Dental V72.0 Examination Eyes & Vision 268.9 Vitamin D Deficiency Unspec 272.4 Hyperlipidemia Other Unspec V70.0 Examination General Medical Routine AT Health Care Facility V72.31 Routine Brush Stainer Examination V76.2 Screening Malignant Neoplasm Cervix V76.41 Screening Malignant Neoplasm Rectum 795.04 Pap Smear Cervix W/HGSIL 795.03 Pap Smear Cervix W/LGSIL GENERAL General Office Visit 12/21/2010 Main Office Mely Leos, 289.90 Thrombocytosis/Blood 2:15p MD Mera V72.2 Examination Dental V72.0 Examination Eyes & Vision 268.9 Vitamin D Deficiency Unspec 272.4 Hyperlipidemia Other Unspec 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 V62.3 Educational Circumstances Problem GENERAL General Office Visit 05/12/2010 Main Office Mely Leos, 289.90 Thrombocytosis/Blood 3:30p MD Mera V72.2 Examination Dental V72.0 Examination Eyes & Vision V70.0 Examination General Medical Routine AT Health Care Facility 268.9 Vitamin D Deficiency Unspec 733.90 Osteopenia Unspec V72.31 Routine Brush Stainer Examination V76.2 Screening Malignant Neoplasm Cervix V76.41 Screening Malignant Neoplasm Rectum 795.04 Pap Smear Cervix W/HGSIL 795.03 Pap Smear Cervix W/LGSIL GENERAL General Office Visit 11/18/2009 3:00p Main Office Mely Leos MD V72.2 Examination Dental V72.0 Examination Eyes & Vision 268.9 Vitamin D Deficiency Unspec GENERAL General Office Visit 07/14/2009 2:45p Main Office Mely Leos MD 465.9 URI Upper Respiratory Infections Acute Unspec Sites V72.2 Examination Dental V72.0 Examination Eyes & Vision GENERAL General Office Visit 05/20/2009 2:30p Main Office Mely Leos MD 272.4 Hyperlipidemia Other Unspec 268.9 Vitamin D Deficiency Unspec V72.31 Routine Brush Stainer Examination V76.2 Screening Malignant Neoplasm Cervix V76.41 Screening Malignant Neoplasm Rectum 795.04 Pap Smear Cervix W/HGSIL 795.03 Pap Smear Cervix W/LGSIL V72.2 Examination Dental V70.0 Examination General Medical Routine AT Health Care Facility GENERAL General Office Visit 10/01/2008 3:00p Main Office Mely Leos MD 473.90 Sinusitis 272.4 Hyperlipidemia Other Unspec GENERAL General Office Visit 04/30/2008 2:30p Main Office Mely Leos MD V76.2 Screening Malignant Neoplasm Cervix 795.04 Pap Smear Cervix W/HGSIL 795.03 Pap Smear Cervix W/LGSIL 785.10 Palpitations 272.4 Hyperlipidemia Other Unspec 786.50 Pain Chest Unspec V72.2 Examination Dental V70.0 Examination General Medical Routine AT Health Care Facility GENERAL General Office Visit 11/01/2007 11:15a Main Office Mely Leos MD 460.00 Upper Respiratory Infection Office Visit 05/30/2007 1:45p Main Office Mely Leos MD 460.00 Upper Respiratory Infection Office Visit 04/25/2007 3:15p Main Office Mely Leos MD 272.40 Hyperlipidemia V76.2 Screening Malignant Neoplasm Cervix GENERAL General Office Visit 12/13/2006 12:45p Main Office Mely Leos MD 626.4 Irregular Menstrual Cycle Office Visit 04/21/2006 3:30p Main Office Mely Leos MD 715.09 Osteoarthrosis Generalized Multiple Sites 795.04 Pap Smear Cervix W/HGSIL 795.03 Pap Smear Cervix W/LGSIL GENERAL General Office Visit 04/20/2005 3:30p Main Office Mely Leos MD 610.3 Fibrosclerosis Breast Office Visit 04/17/2004 10:00a Main Office Mely Leos MD 272.40 Hyperlipidemia Plan of Treatment Future Appointment(s):05/08/2019 8:00 am - Nurse at Main [id number]/21/2019 3: 30 pm - Mely Leos MD at Main Office
[2019-01-16 11:46] VITALS: BP 104/76
--- NOTE | 2019-01-16 12:20 | ED ---
Lower Extremity - HPI Summary HPI Summary: 48 yr old with the complaint of redness and skin swelling in the left popliteal area. The patient shaves the back of her legs into this area less frequently than the rest of her legs. She has redness. No history of any bites she recalls. She last shaved the area prior to going on a kayak trip to [facility] on Tuesday. The discomfort and redness began Tuesday evening. It is worse with flexion at the right knee. The patient has no fever or chills. She has no swelling of the lower leg or the proximal leg. She has no other complaints. She denies any history of MRSA. No history of any specific bites. - History of Current Complaint Chief Complaint: UCSkin Stated Complaint: SKIN CONCERN Time Seen by Provider: 01/16/19 11:59 Hx Last Menstrual Period: 01/06/19 Pain Intensity: 5 - Allergies/Home Medications Allergies/Adverse Reactions: Allergies Allergy/AdvReac Type Severity Reaction Status Date / Time No Known Allergies Allergy Verified 01/16/19 11:46 Home Medications: Home Medications Naproxen Sodium [Aleve] 2 tab PO ONCE 01/16/19 [History Confirmed 01/16/19] PMH/Surg Hx/FS Hx/Imm Hx Infectious Disease History: No Infectious Disease History: Denies: Traveled Outside the [place] in Last 30 Days - Family History Known Family History: Positive: None Negative: Respiratory Disease - Social History Occupation: Employed Full-time Alcohol Use: None Substance Use Type: Reports: None Smoking Status (MU): Never Smoked Tobacco Review of Systems Constitutional: Negative Positive: Other - cellulitis behind left knee All Other Systems Reviewed And Are Negative: Yes Physical Exam Triage Information Reviewed: Yes Vital Signs On Initial Exam: Initial Vitals Temp Pulse Resp BP Pulse Ox 98.6 F 79 16 104/76 98 01/16/19 11:39 01/16/19 11:39 01/16/19 11:39 01/16/19 11:39 01/16/19 11:39 Vital Signs Reviewed: Yes Appearance: Positive: Well-Appearing, Obese Skin: Positive: Warm, Other - cellulitis, redness behind left knee in popliteal area. The skin is indurated and red. No fluctuance, no venous engorgement or phlebitis palpated. No bite clark Eyes: Positive: EOMI ENT: Positive: Normal ENT inspection, Hearing grossly normal Neck: Positive: Nontender Respiratory/Lung Sounds: Positive: Clear to Auscultation, Breath Sounds Present Cardiovascular: Positive: RRR. Negative: Murmur Abdomen Description: Positive: Nontender Musculoskeletal: Positive: Strength/ROM Intact, Other - no tenderness to palpate the left thigh or the left leg, calf or foot.. Negative: Edema Left, Edema Right Neurological: Positive: Sensory/Motor Intact, Alert, Oriented to Person Place, Time, CN Intact II-III Psychiatric: Positive: Normal Diagnostics - Vital Signs Vital Signs Temp Pulse Resp BP Pulse Ox 01/16/19 11:39 98.6 F 79 16 104/76 98 - Laboratory Lab Statement: Any lab studies that have been ordered have been reviewed, and results considered in the medical decision making process. Lower Extremity Course/Dx - Course Course Of Treatment: 48 yr old with cellulitis to the left popliteal fossa. This is likely from shaving and hair follicle. Rx with keflex. - Diagnoses Provider Diagnoses: Folliculitis, Cellulitis Discharge - Sign-Out/Discharge Documenting (check all that apply): Patient Departure All imaging exams completed and their final reports reviewed: No Studies - Discharge Plan Condition: Good Disposition: HOME Prescriptions: Cephalexin CAP* [Keflex CAP*] 1,000 mg PO BID #[id number] cap Patient Education Materials: Cellulitis (ED), Folliculitis (ED) Referrals: Mely Leos MD [Primary Care Provider] - 2 Days - Billing Disposition and Condition Condition: GOOD Disposition: Home
== END 2019-01-16 12:28 | disposition home or self-care (01) ==
LOC: UCCORT 11:08
DX: L73.9 Follicular disorder, unspecified (principal); L03.116 Cellulitis of left lower limb
CPT/HCPCS: 99212; G0463

== ENCOUNTER 2023-11-29 06:24 | Observation (INO) ==
[~2023-11-29 06:24] MED LIST: Naloxone 0.4 mg VIAL 0.4 mg/ml 1 ml VIAL IV PRN; fentaNYL 100 mcg/2 ml 50 MCG/ML VIAL IV PRN
[2023-11-29] MEDS ORDERED: ceFAZolin 2 GM PREMIX 2 GM/50 ML BAG ONE (06:49)
[2023-11-29] MEDS ORDERED: Tranexamic Acid 1 GM/100ML BAG 2,000 MG/200 ML BAG IV ONE (06:49)
[2023-11-29] MEDS ORDERED: fentaNYL 100 mcg/2 ml 50 MCG/ML VIAL ONE ×2 (06:59→07:25)
[2023-11-29] MEDS ORDERED: Midazolam 2 mg/2 ml VIAL 1 mg/ml 2 ml VIAL (2 mg) ONE ×2 (06:59→07:25)
[2023-11-29] MEDS ORDERED: Propofol 0 MG/0 ML BTL ONE (06:59)
[2023-11-29] MEDS ORDERED: Phenylephrine IV 10 MG/ML 1 ml VIAL ONE (06:59)
[2023-11-29] MEDS ORDERED: Glycopyrrolate IV 0.2 MG/ML 1 ML VIAL ONE (06:59)
[2023-11-29] MEDS ORDERED: Ondansetron 4 mg VIAL 2 MG/ML 2 ml VIAL ONE (06:59)
[2023-11-29] MEDS ORDERED: Lidocaine 2% PF 5 ML VIAL ONE (06:59)
[2023-11-29 07:18] LABS: Rapid COVID-19 Molecular Undetected (Undetected)
[2023-11-29] MEDS ORDERED: ROPIVACAINE 5 MG/ML 30 ML BTL (0.5%) ONE ×2 (07:25→07:37)
[2023-11-29] MEDS ORDERED: Dexamethasone IV 4 MG/ML VIAL 1 ml VIAL ONE (07:25)
[2023-11-29] MEDS ORDERED: Propofol 10 MG/ML 20 ML BTL ONE ×2 (09:47→10:41)
[2023-11-29] MEDS ORDERED: Magnesium Hydroxide LIQ 30 ML UDC PO PRN (09:59)
[2023-11-29] MEDS ORDERED: Ondansetron 4 mg VIAL 2 MG/ML 2 ml VIAL IV PRN (09:59)
[2023-11-29] MEDS ORDERED: Lactulose 30 ml UDC PO PRN (09:59)
[2023-11-29] MEDS ORDERED: Ondansetron ODT 4 mg TAB 4 MG TAB PO PRN (09:59)
[2023-11-29] MEDS ORDERED: Morphine 2 MG/ML SYRINGE IV PRN (09:59)
[2023-11-29] MEDS ORDERED: Acetaminophen IV 1 GM/100ML 1,000 MG/100 ML BAG IV ONE (10:38)
[2023-11-29] MEDS: Lactated Ringers 1000 ml BAG 1,000 ML IV SCH ×2 (12:55→13:46)
[2023-11-29] MEDS: Buffered Lidocaine 1% SYRIN 1 ml INTRADERM ONE (13:46)
[2023-11-29 15:45] VITALS: BP 150/99
[2023-11-29] MEDS: ceFAZolin 1 GM ADVAN 1 GM in NS 0.9% 50 ML 50 ML IVPB SCH (16:15)
[2023-11-29] MEDS ORDERED: Magnesium Hydroxide LIQ 30 ML UDC PO SCH (21:00)
[2023-11-30] MEDS ORDERED: Vitamin THERAPEUTIC TAB PO SCH (09:00)
== END 2023-11-29 17:15 | disposition home or self-care (01) ==
LOC: SSU 06:24 → OR 06:24 → EDSTATUS 14:45
PROVIDERS: ADMIT Orthopaedic Surgery Adult Reconstructive Orthopaedic Surgery; ATTEND Orthopaedic Surgery Adult Reconstructive Orthopaedic Surgery